=== PATIENT | male | born 1970 | race Caucasian/White ===

== ENCOUNTER 2019-02-01 16:25 | Emergency (ER) | payer OTHER ==
--- NOTE | 2019-02-01 17:35 | RAD REPORT ---
EXAM DESCRIPTION: RAD - Knee Left 3 View - 02/01/2019 5:13 pm CLINICAL HISTORY: Left knee pain FINDINGS: No fracture or dislocation is seen. Mild to moderate osteoarthritis involves medial compartment consisting of joint space narrowing osteo phytes
--- NOTE | 2019-02-01 19:16 | EDPHYS ---
Physician Documentation [facility] Name: Garland Hidalgo Age: 48 yrs Sex: Male : 1970 Arrival Date: 02/01/2019 Time: 16:29 Bed Treatment Private MD: ED Physician Bill Puri HPI: 02/01 19:28 This 48 yrs old Male presents to ER via Wheelchair with complaints of Knee snw Injury. 19:28 The patient presents with decreased range of motion, an injury, pain, that is acute. snw The complaints affect the left knee. Context: The problem was sustained at home, resulted from a mis-step, the patient can fully bear weight, the patient is able to ambulate. Onset: The symptoms/episode began/occurred suddenly, today. Associated signs and symptoms: The patient has no apparent associated signs or symptoms. Treatment prior to arrival includes: splinting the affected extremity. Severity of symptoms: At their worst the symptoms were moderate. The patient has experienced a previous episode, approximately 1 years ago. It is unknown whether or not the patient has recently seen a physician. Historical: - Allergies: 16:46 TETRACYCLINES; hb 16:46 PENICILLINS; hb - Home Meds: 16:46 Advair Diskus Inhl 1 puff daily [Active]; albuterol sulfate 2.5 mg /3 mL (0.083 %) Inhl hb nebu 3 mL 3 times per day [Active]; Proventil Inhl 2.5 mg as needed [Active]; - PMHx: 16:46 Asthma; Hyperlipidemia; Hypertension; hb - PSHx: 16:46 Hernia repair; hb - Immunization history:: Adult Immunizations up to date. - Social history:: Smoking status: Patient/guardian denies using tobacco. - Ebola Screening: : No symptoms or risks identified at this time. ROS: 19:26 Constitutional: Negative for fever, chills, and weight loss, Eyes: Negative for injury, snw pain, redness, and discharge, ENT: Negative for injury, pain, and discharge, Neck: Negative for injury, pain, and swelling, Cardiovascular: Negative for chest pain, palpitations, and edema, Respiratory: Negative for shortness of breath, cough, wheezing, and pleuritic chest pain, Abdomen/GI: Negative for abdominal pain, nausea, vomiting, diarrhea, and constipation, Back: Negative for injury and pain, : Negative for injury, bleeding, discharge, and swelling, Skin: Negative for injury, rash, and discoloration, Neuro: Negative for headache, weakness, numbness, tingling, and seizure, Psych: Negative for depression, anxiety, suicide ideation, homicidal ideation, and hallucinations. 19:26 MS/extremity: Positive for pain, of the left knee. Exam: 19:25 Constitutional: This is a well developed, well nourished patient who is awake, alert, snw and in no acute distress. Head/Face: Normocephalic, atraumatic. Eyes: Pupils equal round and reactive to light, extra-ocular motions intact. Lids and lashes normal. Conjunctiva and sclera are non-icteric and not injected. Cornea within normal limits. Periorbital areas with no swelling, redness, or edema. ENT: Nares patent. No nasal discharge, no septal abnormalities noted. Tympanic membranes are normal and external auditory canals are clear. Oropharynx with no redness, swelling, or masses, exudates, or evidence of obstruction, uvula midline. Mucous membranes moist. Neck: Trachea midline, no thyromegaly or masses palpated, and no cervical lymphadenopathy. Supple, full range of motion without nuchal rigidity, or vertebral point tenderness. No Meningismus. Chest/axilla: Normal chest wall appearance and motion. Nontender with no deformity. No lesions are appreciated. Cardiovascular: Regular rate and rhythm with a normal S1 and S2. No gallops, murmurs, or rubs. Normal PMI, no JVD. No pulse deficits. Respiratory: Lungs have equal breath sounds bilaterally, clear to auscultation and percussion. No rales, rhonchi or wheezes noted. No increased work of breathing, no retractions or nasal flaring. Abdomen/GI: Soft, non-tender, with normal bowel sounds. No distension or tympany. No guarding or rebound. No evidence of tenderness throughout. Back: No spinal tenderness. No costovertebral tenderness. Full range of motion. Skin: Warm, dry with normal turgor. Normal color with no rashes, no lesions, and no evidence of cellulitis. Neuro: Awake and alert, GCS 15, oriented to person, place, time, and situation. Cranial nerves II-XII grossly intact. Motor strength 5/5 in all extremities. Sensory grossly intact. Cerebellar exam normal. Normal gait. Psych: Awake, alert, with orientation to person, place and time. Behavior, mood, and affect are within normal limits. 19:25 Musculoskeletal/extremity: Extremities: grossly normal except: noted in the left knee: pain, ROM: limited active range of motion due to pain, in the left knee, Circulation is intact in all extremities. Sensation intact. Vital Signs: 16:46 BP 141 / 94; Pulse 86; Resp 16; Temp 98.1; Pulse Ox 98% on R/A; Pain 10/10; hb 19:30 BP 145 / 101; Pulse 88; Resp 18; Pulse Ox 99% on R/A; jb4 MDM: 18:08 Patient medically screened. snw 19:27 Data reviewed: vital signs, nurses notes. Data interpreted: Pulse oximetry: on room air snw is 98 %. Interpretation: normal. Counseling: I had a detailed discussion with the patient and/or guardian regarding: the historical points, exam findings, and any diagnostic results supporting the discharge/admit diagnosis, radiology results, the need for outpatient follow up, to return to the emergency department if symptoms worsen or persist or if there are any questions or concerns that arise at home. Special discussion: I have referred the patient to see his PCP for further evaluation of high blood pressure. Based on the history and exam findings, there is no indication for further emergent testing or inpatient evaluation. I discussed with the patient/guardian the need to see the orthopedic surgeon for further evaluation of the symptoms. I discussed with the patient/guardian the need to see the primary care provider for further evaluation of the symptoms. 02/01 16:46 Order name: Knee Left 3 View XRAY; Complete Time: 18:08 hb Administered Medications: 19:22 Drug: TORadol 60 mg Route: IM; Site: left gluteus; jb4 19:30 Follow up: Response: No adverse reaction; Medication administered at discharge. jb4 Disposition: 02/02 07:01 Co-signature as Attending Physician, Bill Puri MD I agree with the assessment and kdr plan of care. Disposition: 02/01/19 19:15 Discharged to Home. Impression: Pain in left knee. - Condition is Stable. - Discharge Instructions: Joint Pain, How to Use a Knee Brace, Musculoskeletal Pain, Knee Pain, Cryotherapy, [id number], Heat Therapy. - Prescriptions for Diclofenac Sodium 75 mg Oral Tablet Sustained Release - take 1 tablet by ORAL route 2 times per day; 30 tablet. - Work release form, Medication Reconciliation Form, Thank You Letter, Antibiotic Education, Prescription Opioid Use form. - Follow up: Private Physician; When: 2 - 3 days; Reason: Recheck today's complaints, Continuance of care, Re-evaluation by your physician. Follow up: Emergency Department; When: As needed; Reason: Worsening of condition. Signatures: Dispatcher [employer] EDMS Bill Puri MD MD [facility] Lacy An, ORACLE SECURITY CONSULTANT-C ORACLE SECURITY CONSULTANT-Csnw Celena Guillen, RN RN Marko Santos RN RN jb4 Corrections: (The following items were deleted from the chart) 02/01 19:39 19:15 02/01/2019 19:15 Discharged to Home. Impression: Pain in left knee. Condition is jb4 Stable. Forms are Medication Reconciliation Form, Thank You Letter, Antibiotic Education, Prescription Opioid Use. Follow up: Private Physician; When: 2 - 3 days; Reason: Recheck today's complaints, Continuance of care, Re-evaluation by your physician. Follow up: Emergency Department; When: As needed; Reason: Worsening of condition. snw
--- NOTE | 2019-02-01 19:16 | ER ---
Nurse's Notes [facility] Name: Garland Hidalgo Age: 48 yrs Sex: Male : 1970 Arrival Date: 02/01/2019 Time: 16:29 Bed Treatment Private MD: Diagnosis: Pain in left knee Presentation: 02/01 16:42 Presenting complaint: Patient states: "I felt and heard a loud pop in my left knee when hb I was stepping up a trailer." Now c/o left knee pain 09/06. Transition of care: patient was not received from another setting of care. Onset of symptoms was February 01, 2019 at 14:30. Risk Assessment: Do you want to hurt yourself or someone else? Patient reports no desire to harm self or others. Care prior to arrival: Medication(s) given: Tylenol, 2 hrs SAFETY INVESTIGATOR/CAUSE ANALYST. 16:42 Method Of Arrival: Wheelchair hb 16:42 Acuity: PETER 4 hb 17:00 Initial Sepsis Screen: Does the patient meet any 2 criteria? No. Patient's initial iw sepsis screen is negative. Does the patient have a suspected source of infection? No. Patient's initial sepsis screen is negative. Triage Assessment: 18:00 Injury Description:. iw Historical: - Allergies: 16:46 TETRACYCLINES; hb 16:46 PENICILLINS; hb - Home Meds: 16:46 Advair Diskus Inhl 1 puff daily [Active]; albuterol sulfate 2.5 mg /3 mL (0.083 %) Inhl hb nebu 3 mL 3 times per day [Active]; Proventil Inhl 2.5 mg as needed [Active]; - PMHx: 16:46 Asthma; Hyperlipidemia; Hypertension; hb - PSHx: 16:46 Hernia repair; hb - Immunization history:: Adult Immunizations up to date. - Social history:: Smoking status: Patient/guardian denies using tobacco. - Ebola Screening: : No symptoms or risks identified at this time. Screenin:38 Abuse screen: Denies threats or abuse. Denies injuries from another. Nutritional iw screening: No deficits noted. Tuberculosis screening: No symptoms or risk factors identified. Fall Risk None identified. Assessment: 18:38 General: Appears in no apparent distress. comfortable, Behavior is calm, cooperative. iw Pain: Complains of pain in left knee. Neuro: Level of Consciousness is awake, alert, obeys commands, Moves all extremities. Cardiovascular: Patient's skin is warm and dry. Respiratory: Respiratory effort is even, unlabored. Derm: Skin is intact, is healthy with good turgor. Musculoskeletal: Range of motion: intact in all extremities, Reports pain in left knee. 19:15 Reassessment: Patient appears in no apparent distress at this time. Patient and/or jb4 family updated on plan of care and expected duration. Pain level reassessed. Patient is alert, oriented x 3, equal unlabored respirations, skin warm/dry/pink. Vital Signs: 16:46 BP 141 / 94; Pulse 86; Resp 16; Temp 98.1; Pulse Ox 98% on R/A; Pain 10/10; hb 19:30 BP 145 / 101; Pulse 88; Resp 18; Pulse Ox 99% on R/A; jb4 ED Course: 16:29 Patient arrived in ED. rg4 16:45 Triage completed. hb 16:46 Arm band placed on. hb 16:48 X-ray ordered. hb 17:12 X-ray completed. Portable x-ray completed in exam room. Patient tolerated procedure ls3 well. 17:13 Knee Left 3 View XRAY In Process Unspecified. EDMS 17:37 Suzie Jones, RN is Primary Nurse. iw 17:52 Patient has correct armband on for positive identification. Call light in reach. Ice mh5 pack to injury. 18:08 Lacy An FNP-C is [facility]. snw 18:08 Bill Puri MD is Attending Physician. snw 18:39 No provider procedures requiring assistance completed. Patient did not have IV access iw during this emergency room visit. Administered Medications: 19:22 Drug: TORadol 60 mg Route: IM; Site: left gluteus; jb4 19:30 Follow up: Response: No adverse reaction; Medication administered at discharge. jb4 Outcome: 19:15 Discharge ordered by . snw 19:38 Discharged to home via wheelchair. iw 19:38 Condition: good 19:38 Discharge instructions given to patient, Instructed on discharge instructions, follow up and referral plans. medication usage, Demonstrated understanding of instructions, follow-up care, medications, Prescriptions given X 1. 19:39 Patient left the ED. jb4 Signatures: Dispatcher [employer] EDMS Lacy An HEAD WELL PULLER-C HEAD WELL PULLER-Csnw Suzie Jones RN RN iw Celena Guillen RN RN Macy Lopez rg4 Marko Santos RN RN 4 Tami Castro 5 Skinny Delgado ls3 Corrections: (The following items were deleted from the chart) 19:54 19:38 Discharge instructions given to patient, Instructed on discharge instructions, iw follow up and referral plans. medication usage, Demonstrated understanding of instructions, follow-up care, medications, Prescriptions given X 2, iw
[2019-02-01] MEDS ORDERED: KETOROLAC 30 MG/ML INJ ONE (19:33)
== END 2019-02-01 19:39 | disposition home or self-care (01) ==
LOC: ER 16:25
DX: M25.562 Pain in left knee (principal); I10 Essential (primary) hypertension; E78.5 Hyperlipidemia, unspecified; J45.909 Unspecified asthma, uncomplicated; Z88.0 Allergy status to penicillin; Z88.1 Allergy status to other antibiotic agents
CPT/HCPCS: 96372; 99283

== ENCOUNTER 2024-06-27 12:07 | Observation (INO) | payer OTHER ==
--- OUTSIDE RECORDS SUMMARY | 2024-06-27 12:14 | XMS REPORT | Continuity of Care Document ---
Author Name Unknown Address [address] [place] [address] [address] [place] [address] [facility] Address [address] [facility]. [address] [place] [address] Care Team Providers Care Receiving Worker Name Role Phone MALKA LUTZ Attending Clinician Unavailab shahzad FLEMING Attending Clinician Unavailable Doctor Unassigned, [place] Attending Clinician U Bharti Black Attending Clinician [phone] Malka Lutz MD Attending Clinician [phone] MALKA LUTZ Admitting Clinician Unavailab shahzad FLEMING Admitting Clinician Unavailable Malka Lutz MD Admitting Clinician [phone] Problems Condition Name Condition Details Condition Category Status Onset Date Resolution Date Last Treatment Date Treating Clinician Comments Source Snake bite, initial encounter Snake bite, initial encounter Disease Active 02-02 00:00: 00 [facility] Allergies, Adverse Reactions, Alerts Allergy Name Allergy Type Status Severity Reaction(s) Onset Date Inactive Date Treating Clinician Comments Source Penicill in Propensi ty to adverse reaction s Active Unknown - See comments 02-02 00:00: 00 Pt unsure. [facility] Tetracyc line Propensi ty to adverse reaction s Active Unknown - See comments 02-02 00:00: 00 Pt unsure. [facility] PENICILL IN DRUG INGREDI Active Unknown-Cmnt 02-02 00:00: 00 [facility] TETRACYC LINE DRUG INGREDI Active Unknown-Cmnt 02-02 00:00: 00 [facility] Social History Social Habit Start Date Stop Date Quantity Comments Source Exposure to SARS-CoV-2 (event) Not sure [facility] Sex Assigned At 1970 00:00:00 1970 00:00:00 [facility] Smoking Status Start Date Stop Date Source Unknown if ever smoked [facility] Medications Ordered Medication Name Filled Medication Name Start Date Stop Date Current Medication? Ordering Clinician Indication Dosage Frequency Signature (SIG) Comments Components Source crotalidae polyval immune phillip (CROFAB) injection 2 Vial 02-03 13:28: 00 02-04 03:50 :00 No 2{vial} 2 Vial, Intravenou s, Q6H ABX, 3 doses, First dose (after last reorder) on Tue02/03/21 at 0730, Last dose on Tue02/03/21 at 1930, Routine [facility] lactated ringers IV infusion 1,000 mL 02-03 06:15: 00 Yes 1000mL at 125 mL/hr, 1,000 mL, IV Infusion, CONTINUOUS , Starting Tue02/03/21 at 0015, Until Discontinu ed, Routine [facility] crotalidae polyval immune phillip (CROFAB) injection 4 Vial 02-03 05:15: 00 02-03 05:50 :00 No 4{vial} 4 Vial, Intravenou s, ONCE, 1 dose, Tue02/02/21 at 2315, Routine [facility] morpHINE injection 4 mg 02-03 05:09: 56 Yes 4mg 4 mg, Slow IV Push, Q4HPRN, Starting Tue02/02/21 at 2309, Until Discontinu ed, Routine, Pain (scale 7-10) [facility] No known medications No Un stuart [facility] No known medications No Un stuart [facility] Vital Signs Vital Name Observation Time Observation Value Comments S anatoliy Systolic blood pressure 2021-02-04 15:00:00 148 mm[Hg] [facility] Diastolic blood pressure 2021-02-04 15:00:00 92 mm[Hg] [facility] Heart rate 2021-02-04 15:00:00 87 /min [facility] Respiratory rate 2021-02-04 15:00:00 24 /min [facility] Oxygen saturation in Arterial blood by Pulse oximetry 2021-02-04 15:00:00 95 /min [facility] Body temperature 2021-02-04 14:00:00 37 Preeti [facility] Body weight 2021-02-03 04:47:00 111.131 kg [facility] Procedures Procedure Date / Time Performed Performing Clinician Source EXTERNAL PROVIDER RECORDS 2021-02-11 05:01:00 Doctor Unassigned, [place] [facility] PHOSPHORUS 2021-02-04 10:28:00 Melba, [facility] CBC WITH DIFF 2021-02-04 10:28:00 Melba [facility] PROTHROMBIN TIME / INR 2021-02-03 09:37:00 Melba [facility] ACTIVATED PARTIAL THRMPLAS EPIFANIO 2021-02-03 09:37:00 Melba [facility] FIBRINOGEN 2021-02-03 09:37:00 Melba [facility] PHOSPHORUS 2021-02-03 08:51:00 Melba, [facility] MAGNESIUM 2021-02-03 08:51:00 Melba [facility] BASIC METABOLIC PANEL (NA, K, CL, CO2, GLUCOSE, BUN, CREATININE, CA) 2021-02-03 08:51:00 Melba [facility] CBC WITH DIFF 2021-02-03 08:51:00 Melba [facility] EXTRA TUBE LT. BLUE 2021-02-03 08:51:00 Adrian Lutz am [facility] MRSA / MSSA SCREEN BY PCR, MAGDA 2021-02-03 06:54:00 Melba [facility] URINALYSIS 2021-02-03 05:38:00 Melba [facility] CBC WITH DIFF 2021-02-03 05:09:00 Melba [facility] BASIC METABOLIC PANEL (NA, K, CL, CO2, GLUCOSE, BUN, CREATININE, CA) 2021-02-03 05:08:00 Melba [facility] PROTHROMBIN TIME / INR 2021-02-03 05:08:00 MelbaAndreea [facility] ACTIVATED PARTIAL THRMPLAS EPIFANIO 2021-02-03 05:08:00 MelbaAndreea [facility] FIBRINOGEN 2021-02-03 05:08:00 [facility] 2021-02-02 06:01:00 Doctor Un assigned, [place] [facility] Encounters Start Date/Time End Date/Time Encounter Type Admission Type Attending Clinicians Care Facility Care Department Encounter ID Source 2021-02-02 22:48:00 Inpatient X MALKA LUTZ [facility] SPL [id number] [facility] 2022-06-08 11:29:00 2022-06-08 11:29:00 Outpatient GIFTY_TODD MACRa [facility] [id number] [facility] Program 2021-02-11 00:00:00 2021-02-11 00:00:00 Orders Only Doctor Unassigned, [place] [facility] [id number] [facility] 2021-02-05 00:00:00 2021-02-05 00:00:00 Transition of Care Basim Bharti Marilyncliff Rodrigo Poe [id number] [facility] 2021-02-02 22:48:00 2021-02-04 10:00:00 Hospital Encounter Malka Lutz [facility] [id number] [facility] Results Test Description Test Time Test Comments Results Result Co mments Source [facility] with [id number] 11:13:40* Test Item Value Reference Range Interpretation Comme nts WBC (test code = 6690-2) See_Comment [Automated messa ge] The system which generated this result transmitted reference range: 4.20 - 10.70 10*3/?L. The reference range was not used to interpret this result as normal/abnormal. RBC (test code = 789-8) See_Comment [Automated VidFall.coma ge] The system which generated this result transmitted reference range: 4.26 - 5.52 10*6/?L. The reference range was not used to interpret this result as normal/abnormal. HGB (test code = 718-7) 14.3 g/dL 12.2-16.4 HCT (test code = 4544-3) 43.4 % 38.4-49.3 MCV (test code = 787-2) 91.8 fL 81.7-95.6 MCH (test code = 785-6) 30.2 pg 26.1-32.7 MCHC (test code = 786-4) 32.9 g/dL 31.2-35.0 RDW-SD (test code = 67611-5) 44.5 fL 38.5-51.6 RDW-CV (test code = 788-0) 13.2 % 12.1-15.4 PLT (test code = 777-3) See_Comment [Automated VidFall[employer]coma ge] The system which generated this result transmitted reference range: 150 - 328 10*3/?L. The reference range was not used to interpret this result as normal/abnormal. MPV (test code = 16214-6) 11.1 fL 9.8-13.0 NRBC/100 WBC (test code = 2067904122) See_Comment [Automated Aviir ssage] The system which generated this result transmitted reference range: 0.0 - 10.0 /100 WBCs. The reference range was not used to interpret this result as normal/abnormal. NRBC x10^3 (test code = 5631169112) <0.01 See_Comment [Automated me ssage] The system which generated this result transmitted reference range: 10*3/?L. The reference range was not used to interpret this result as normal/abnormal. GRAN MAT (NEUT) % (test code = 770-8) 58.9 % IMM GRAN % (test code = 4892330385) 0.30 % LYMPH % (test code = 736-9) 25.9 % MONO % (test code = 5905-5) 10.5 % EOS % (test code = 713-8) 3.8 % BASO % (test code = 706-2) 0.6 % GRAN MAT x10^3(ANC) (test code = 6197144779) 4.71 10*3/uL 1.99-6.95 IMM GRAN x10^3 (test code = 0678880633) <0.03 0.00-0.06 LYMPH x10^3 (test code = 731-0) 2.07 10*3/uL 1.09-3.23 MONO x10^3 (test code = 742-7) 0.84 10*3/uL 0.36-1.02 EOS x10^3 (test code = 711-2) 0.30 10*3/uL 0.06-0.53 BASO x10^3 (test code = 704-7) 0.05 10*3/uL 0.01-0.09 [facility] Screen by Magda [id number] 22:01:29* Test Item Value Reference Range Interpretation Comme nts MSSA Screen by Magda DILLON (t est code = 02993-4) Negative Negative MRSA/MSSA Positive? (test co de = 0011149179) No No Lab Interpretation (test cod e = 61812-1) Normal [facility] THRM[facility]AS [id number] 10:09:26* Test Item Value Reference Range Interpretation Comme nts APTT Patient (test code = 3173-2) See_Comment [Automated VidFall.coma ge] The system which generated this result transmitted reference range: 26 - 36 Seconds. The reference range was not used to interpret this result as normal/abnormal. Lab Interpretation (test code = 75362-7) Normal [facility]EN2021-03-09 10:09:26* Test Item Value Reference Range Interpretation Comme nts Fibrinogen (test code = 9557945932) 274 mg/dL 167-453 Lab Interpretation (test cod e = 95985-1) Normal [facility] CenterPROTHR[facility]BIN TIME / [id number] 10:09:26* Test Item Value Reference Range Interpretation Comme nts PROTIME PATIENT (test code = 5964-2) See_Comment H [Automated VidFall.coma ge] The system which generated this result transmitted reference range: 10.1 - 12.6 Seconds. The reference range was not used to interpret this result as normal/abnormal. INR (test code = 6301-6) Normal INR <1.1; Warfarin Therapeutic range 2.0 to 3.0 or 2.5 to 3.5, depending upon the indications. Lab Interpretation (test code = 57899-2) Abnormal [facility] CenterMagnesium [id number] 09:27:57* Test Item Value Reference Range Interpretation Comme nts MAGNESIUM (test code = 9287752337) 1.7 mg/dL 1.7-2.4 Lab Interpretation (test cod e = 48878-7) Normal [facility] CenterPhosphorus [id number] 09:27:57* Test Item Value Reference Range Interpretation Comme nts PHOSPHORUS (test code = 4179961444) 3.6 mg/dL 2.5-5.0 Lab Interpretation (test cod e = 50452-0) Normal [facility] (NA, K, CL, CO2, GLUCOSE, BUN, CREATININE, CA)2021-02-03 09:27:57* Test Item Value Reference Range Interpretation Comme nts NA (test code = 7989981195) 138 mmol/L 135-145 K (test code = 6792127011) 4.2 mmol/L 3.5-5.0 Slight hemolysis CL (test code = 4725814806) 106 mmol/L 98-108 CO2 TOTAL (test code = 2813247288) 24 mmol/L 23-31 AGAP (test code = 9678234723) 2-16 BUN (test code = 2549136277) 17 mg/dL 7-23 Slight hemolysis GLUCOSE (test code = 0427737947) 121 mg/dL 70-110 H CREATININE (test code = 7017650256) 0.61 mg/dL 0.60-1.25 CALCIUM (test code = 1612632220) 8.0 mg/dL 8.6-10.6 L eGFR Calculation (Non-) (test code = 2775710862) mL/min/1.73m2 eGFR Calculation () (test code = 1691172312) mL/min/1.73m2 BRE (test code = BRE) Association of Glomerular Filtration Rate (GFR) and Staging of Kidney Disease* + -----+ --------+ +| GFR (mL/min/1.73 m2) ?| With Kidney Damage ?| ?Without Kidney Damage+ +------- +---- --+| ?>90 ?| ?Stage one ?| ? Normal ?+ ------+ ---------+--------- +| ?60-89 ?| ?Stage two ?| ? Decreased GFR ? + -----+ --------+ +| ?30-59 ?| ?Stage three ?| ? Stage three ? + -----+ --------+ +| ?15-29 ?| ?Stage four ? | ? Stage four ?+ ------+ ---------+--------- +| ?<15 (or dialysis) ? ?| ?Stage five ? | ? Stage five ?+ ------+ ---------+--------- + *Each stage assumes the associated GFR level has been in effect for at least three months. ?Stages 1 to 5, with or without kidney disease, indicate chronic kidney disease. Notes: Determination of stages one and two (with eGFR >59mL/min/1.73 m2) requires estimation of kidney damage for at least three months as defined by structural or functional abnormalities of the kidney, manifested by either:Pathological abnormalities or Markers of kidney damage (including abnormalities in the composition of the blood or urine or abnormalities in imaging tests). Lab Interpretation (test code = 65274-4) Abnormal [facility] WITH [id number] 09:11:14* Test Item Value Reference Range Interpretation Comme nts WBC (test code = 6690-2) See_Comment H [Automated SiTune] The system which generated this result transmitted reference range: 4.20 - 10.70 10*3/?L. The reference range was not used to interpret this result as normal/abnormal. RBC (test code = 789-8) See_Comment [Automated SiTune] The system which generated this result transmitted reference range: 4.26 - 5.52 10*6/?L. The reference range was not used to interpret this result as normal/abnormal. HGB (test code = 718-7) 14.5 g/dL 12.2-16.4 HCT (test code = 4544-3) 44.8 % 38.4-49.3 MCV (test code = 787-2) 89.8 fL 81.7-95.6 MCH (test code = 785-6) 29.1 pg 26.1-32.7 MCHC (test code = 786-4) 32.4 g/dL 31.2-35.0 RDW-SD (test code = 61650-6) 43.5 fL 38.5-51.6 RDW-CV (test code = 788-0) 13.2 % 12.1-15.4 PLT (test code = 777-3) See_Comment [Automated messa ge] The system which generated this result transmitted reference range: 150 - 328 10*3/?L. The reference range was not used to interpret this result as normal/abnormal. MPV (test code = 80094-3) 11.2 fL 9.8-13.0 NRBC/100 WBC (test code = 7447250475) See_Comment [Automated Aviir ssage] The system which generated this result transmitted reference range: 0.0 - 10.0 /100 WBCs. The reference range was not used to interpret this result as normal/abnormal. NRBC x10^3 (test code = 5929058494) <0.01 See_Comment [Automated VidFall.coma ge] The system which generated this result transmitted reference range: 10*3/?L. The reference range was not used to interpret this result as normal/abnormal. GRAN MAT (NEUT) % (test code = 770-8) 80.7 % IMM GRAN % (test code = 0420850072) 0.30 % LYMPH % (test code = 736-9) 11.3 % MONO % (test code = 5905-5) 7.3 % EOS % (test code = 713-8) 0.2 % BASO % (test code = 706-2) 0.2 % GRAN MAT x10^3(ANC) (test code = 8490363312) 9.88 10*3/uL 1.99-6.95 H IMM GRAN x10^3 (test code = 2515845588) 0.04 10*3/uL 0.00-0.06 LYMPH x10^3 (test code = 731-0) 1.39 10*3/uL 1.09-3.23 MONO x10^3 (test code = 742-7) 0.90 10*3/uL 0.36-1.02 EOS x10^3 (test code = 711-2) 0.03 10*3/uL 0.06-0.53 L BASO x10^3 (test code = 704-7) 0.03 10*3/uL 0.01-0.09 Lab Interpretation (test code = 92029-6) Abnormal [facility] CenterURINALYSIS2021-03-09 06:31:43* Test Item Value Reference Range Interpretation Comme nts APPEARANCE (test code = 1695184037) Clear Clear COLOR (test code = 7352086630) Yellow Yellow PH (test code = 2482090856) 4.8-8.0 SP GRAVITY (test code = 1320469929) 1.003-1.030 GLU U QUAL (test code = 6745780692) Normal Normal BLOOD (test code = 2816104203) 1+ Negative A KETONES (test code = 4961217593) Negative Negative PROTEIN (test code = 2887-8) 30 mg/dL Negative A UROBILIN (test code = 2475596281) Normal Normal BILIRUBIN (test code = 3476079648) Negative Negative NITRITE (test code = 4038336998) Negative Negative LEUK MELA (test code = 9151427259) Negative Negative RBC/HPF (test code = 4892445100) <1 See_Comment [Automated VidFall.coma ge] The system which generated this result transmitted reference range: 0 - 3 HPF. The reference range was not used to interpret this result as normal/abnormal. WBC/HPF (test code = 4579887948) See_Comment [Automated VidFall.coma ge] The system which generated this result transmitted reference range: 0 - 5 HPF. The reference range was not used to interpret this result as normal/abnormal. BACTERIA (test code = 4657020347) Negative Negative MUCOUS (test code = 5984780257) Slight Negative LPF A Lab Interpretation (test code = 35745-6) Abnormal [facility] (NA, K, CL, CO2, GLUCOSE, BUN, CREATININE, CA)2021-02-03 05:37:13* Test Item Value Reference Range Interpretation Comme nts NA (test code = 4274030548) 141 mmol/L 135-145 K (test code = 5547919289) 3.7 mmol/L 3.5-5.0 Slight hemolysis CL (test code = 7581973614) 113 mmol/L 98-108 H CO2 TOTAL (test code = 3164824253) 22 mmol/L 23-31 L AGAP (test code = 1162465647) 2-16 BUN (test code = 9954949543) 16 mg/dL 7-23 Slight hemolysis GLUCOSE (test code = 1895956159) 109 mg/dL 70-110 CREATININE (test code = 0506116494) 0.53 mg/dL 0.60-1.25 L CALCIUM (test code = 5478277246) 7.0 mg/dL 8.6-10.6 L eGFR Calculation (Non-) (test code = 0468203088) mL/min/1.73m2 eGFR Calculation () (test code = 0524275195) mL/min/1.73m2 BRE (test code = BRE) Association of Glomerular Filtration Rate (GFR) and Staging of Kidney Disease* + -----+ --------+ +| GFR (mL/min/1.73 m2) ?| With Kidney Damage ?| ?Without Kidney Damage+ +------- +---- --+| ?>90 ?| ?Stage one ?| ? Normal ?+ ------+ ---------+--------- +| ?60-89 ?| ?Stage two ?| ? Decreased GFR ? + -----+ --------+ +| ?30-59 ?| ?Stage three ?| ? Stage three ? + -----+ --------+ +| ?15-29 ?| ?Stage four ? | ? Stage four ?+ ------+ ---------+--------- +| ?<15 (or dialysis) ? ?| ?Stage five ? | ? Stage five ?+ ------+ ---------+--------- + *Each stage assumes the associated GFR level has been in effect for at least three months. ?Stages 1 to 5, with or without kidney disease, indicate chronic kidney disease. Notes: Determination of stages one and two (with eGFR >59mL/min/1.73 m2) requires estimation of kidney damage for at least three months as defined by structural or functional abnormalities of the kidney, manifested by either:Pathological abnormalities or Markers of kidney damage (including abnormalities in the composition of the blood or urine or abnormalities in imaging tests). Lab Interpretation (test code = 17350-4) Abnormal [facility] CenterPROTHROMBIN TIME / [id number] 05:35:11* Test Item Value Reference Range Interpretation Comme [facility] PROTIME PATIENT (test code = 5964-2) See_Comment [Automated VidFall.coma Wormhole] The system which generated this result transmitted reference range: 10.1 - 12.6 Seconds. The reference range was not used to interpret this result as normal/abnormal. INR (test code = 6301-6) Normal INR <1.1; Warfarin Therapeutic range 2.0 to 3.0 or 2.5 to 3.5, depending upon the indications. Lab Interpretation (test code = 56918-5) Normal [facility] CenterACTIV[facility]IAL THRMPLAS [id number] 05:35:11* Test Item Value Reference Range Interpretation Comme [facility] APTT Patient (test code = 3173-2) See_Comment L [Automated SiTune] The system which generated this result transmitted reference range: 26 - 36 Seconds. The reference range was not used to interpret this result as normal/abnormal. Lab Interpretation (test code = 77595-8) Abnormal [facility] CenterFIBRINOGEN2021-03-09 05:35:11* Test Item Value Reference Range Interpretation Comme [facility] Fibrinogen (test code = 5300959478) 311 mg/dL 167-453 Lab Interpretation (test cod e = 62437-6) Normal [facility] CenterCBC WITH [id number] 05:27:33* Test Item Value Reference Range Interpretation Comme [facility] WBC (test code = 6690-2) See_Comment H [Automated message] The system which generated this result transmitted reference range: 4.20 - 10.70 10*3/?L. The reference range was not used to interpret this result as normal/abnormal. RBC (test code = 789-8) See_Comment H [Automated message] The system which generated this result transmitted reference range: 4.26 - 5.52 10*6/?L. The reference range was not used to interpret this result as normal/abnormal. HGB (test code = 718-7) 16.6 g/dL 12.2-16.4 H HCT (test code = 4544-3) 49.7 % 38.4-49.3 H MCV (test code = 787-2) 89.7 fL 81.7-95.6 MCH (test code = 785-6) 30.0 pg 26.1-32.7 MCHC (test code = 786-4) 33.4 g/dL 31.2-35.0 RDW-SD (test code = 70971-8) 43.0 fL 38.5-51.6 RDW-CV (test code = 788-0) 13.1 % 12.1-15.4 PLT (test code = 777-3) See_Comment [Automated message] The system which generated this result transmitted reference range: 150 - 328 10*3/?L. The reference range was not used to interpret this result as normal/abnormal. MPV (test code = 41817-6) 11.1 fL 9.8-13.0 NRBC/100 WBC (test code = 4468101588) See_Comment [Automated message] The system which generated this result transmitted reference range: 0.0 - 10.0 /100 WBCs. The reference range was not used to interpret this result as normal/abnormal. NRBC x10^3 (test code = 3717034604) <0.01 See_Comment [Automated message] The system which generated this result transmitted reference range: 10*3/?L. The reference range was not used to interpret this result as normal/abnormal. GRAN MAT (NEUT) % (test code = 770-8) 86.3 % IMM GRAN % (test code = 7750914180) 0.20 % LYMPH % (test code = 736-9) 6.0 % MONO % (test code = 5905-5) 7.0 % EOS % (test code = 713-8) 0.2 % BASO % (test code = 706-2) 0.3 % GRAN MAT x10^3(ANC) (test code = 7326429175) 14.38 10*3/uL 1.99-6.95 H IMM GRAN x10^3 (test code = 4466344647) 0.04 10*3/uL 0.00-0.06 LYMPH x10^3 (test code = 731-0) 1.00 10*3/uL 1.09-3.23 L MONO x10^3 (test code = 742-7) 1.17 10*3/uL 0.36-1.02 H EOS x10^3 (test code = 711-2) 0.03 10*3/uL 0.06-0.53 L BASO x10^3 (test code = 704-7) 0.05 10*3/uL 0.01-0.09 Lab Interpretation (test code = 29911-9) Abnormal [facility]"
--- NOTE | 2024-06-27 13:36 | RAD REPORT ---
EXAM DESCRIPTION: RAD - Chest Single View - 06/27/2024 1:24 pm CLINICAL HISTORY: COUGH Chest pain. COMPARISON: <Comparisons> FINDINGS: Portable technique limits examination quality. The lungs are grossly clear. The heart is normal in size. No displaced fractures. IMPRESSION: No acute intrathoracic process suspected.
[2024-06-27 14:00] LABS: Absolute Basophils 0.1 K/uL (0-0.5); Absolute Eosinophils 0.1 K/uL (0-0.5); Absolute Lymphocytes (CBC) 2.3 K/uL (0.7-4.9); Absolute Monocytes 0.7 K/uL (0.1-1.3); Absolute Neutrophil 3.9 K/uL (1.8-8.0); Basophils % 0.9 % (0-1.3); Hematocrit 47.8 % (39.6-49.0); Hemoglobin 15.6 g/dL (13.6-17.9); Lymphocytes % 33.2 % (15.3-44.8); MCH 30.1 pg (27.0-35.0); MCHC 32.7 g/dL (32.0-36.0); MCV 92.1 fL (80-100); MPV 9.5 fL (7.6-11.3); Monocytes % 9.5 % (3.3-12.3); Neutrophils % 55.4 % (41.7-73.7); Nucleated Red Blood Cells % 0.1 % (0-0); Platelets 294 thou/uL (152-406); RBC Red Blood Cell Count 5.19 M/uL (4.33-5.43); Red Cell Distribution Width 13.1 % (12.1-15.2)
[2024-06-27 14:03] LABS: Specific Gravity 1.024 (1.005-1.030); Sqamous Epithelial None Seen /HPF (None Seen); Urine Bacteria None Seen /HPF (<20); Urine Bilirubin NEGATIVE (Negative); Urine Blood Negative (Negative); Urine Clarity Extremely Turbid (Clear); Urine Color Yellow (Yellow); Urine Culture Reflex Order NOT NEEDED; Urine Glucose NEGATIVE (Negative); Urine Ketones NEGATIVE (Negative); Urine Microscopic Reflex YN ORDER UMIC; Urine Nitrite NEGATIVE (Negative); Urine Protein TRACE (Negative); Urine RBC None Seen /HPF (None Seen); Urine Urobilinogen Normal (Normal); Urine WBC <5 /HPF (<5)
[2024-06-27 14:06] LABS: PT Prothrombin Time 12.1 SECONDS (9.4-12.5); Protime INR 1.08
[2024-06-27 14:19] LABS: Albumin 4.5 g/dL (3.4-5.0); Albumin/Globulin Ratio 1.2 (1.1-1.8); Anion Gap 10.2 mEq/L (5.0-15.0); Bilirubin Direct 0.2 mg/dL (0-0.2); Bilirubin Indirect, Calculated 0.6 mg/dL (0.2-0.8); Bilirubin Total 0.8 mg/dL (0.2-1.0); Globulin 3.7 g/dL (2.3-3.5); Magnesium 3.1 mg/dL (1.6-2.4); Potassium 4.2 mEq/L (3.5-5.1); Protein, Total 8.2 g/dL (6.4-8.2); Troponin High Sensitivity 10.5 pg/mL (<58.9)
[2024-06-27] MEDS ORDERED: NA CHLORIDE 0.9% 1,000 ML ONE (15:08)
--- NOTE | 2024-06-27 16:53 | EDPHYS ---
Physician Documentation [facility] Name: Garland Hidalgo Age: 53 yrs Sex: Male : 1970 Arrival Date: 06/27/2024 Time: 12:07 Bed 17 Private MD: ED Physician Rocky Lemon HPI: 06/27 16:46 This 53 yrs old Male presents to ER via Ambulatory with complaints of Blurred prabha Vision, cramping all over body., Dizziness. 16:46 The patient presents with dizziness, feeling faint, generalized weakness, prabha lightheadedness. Onset: The symptoms/episode began/occurred 2 day(s) ago. Context: occurred at work, occurred while the patient was working. Modifying factors: The symptoms are alleviated by lying down, the symptoms are aggravated by standing up. Associated signs and symptoms: Pertinent positives: near-syncope. Severity of symptoms: At their worst the symptoms were moderate in the emergency department the symptoms are unchanged. Patient's baseline: Neuro: alert and fully oriented. The patient has experienced similar episodes in the past, several times. Historical: - Allergies: 12:35 PENICILLINS; ko1 12:35 TETRACYCLINES; ko1 - Home Meds: 12:35 albuterol sulfate 2.5 mg /3 mL (0.083 %) Inhl nebu 3 mL 3 times per day [Active]; ko1 Advair Diskus Inhl 1 puff daily [Active]; 12:37 lisinopril 40 mg oral tablet 1 tab once [Active]; aspirin 81 mg Oral tablet, delayed ko1 release (enteric coated) 1 tab once [Active]; - PMHx: 12:37 Asthma; Hyperlipidemia; Hypertension; ko1 - Immunization history:: Adult Immunizations up to date. - Infectious Disease History:: Denies. - Social history:: Smoking status: Patient/guardian denies using tobacco, but has a distant history of tobacco abuse. - Family history:: not pertinent. ROS: 16:46 Constitutional: Negative for fever, chills, and weight loss, Eyes: Negative for injury, prabha pain, redness, and discharge, ENT: Negative for injury, pain, and discharge, Neck: Negative for injury, pain, and swelling, Respiratory: Negative for shortness of breath, cough, wheezing, and pleuritic chest pain, Abdomen/GI: Negative for abdominal pain, nausea, vomiting, diarrhea, and constipation, Back: Negative for injury and pain, : Negative for injury, bleeding, discharge, and swelling, MS/Extremity: Negative for injury and deformity, Skin: Negative for injury, rash, and discoloration, Neuro: Negative for headache, weakness, numbness, tingling, and seizure, Psych: Negative for depression, anxiety, suicide ideation, homicidal ideation, and hallucinations, Allergy/Immunology: Negative for hives, rash, and allergies, Endocrine: Negative for neck swelling, polydipsia, polyuria, polyphagia, and marked weight changes, Hematologic/Lymphatic: Negative for swollen nodes, abnormal bleeding, and unusual bruising, 16:46 Cardiovascular: Positive for palpitations, Exam: 16:46 Constitutional: This is a well developed, well nourished patient who is awake, alert, prabha and in no acute distress. Head/Face: Normocephalic, atraumatic. Eyes: Pupils equal round and reactive to light, extra-ocular motions intact. Lids and lashes normal. Conjunctiva and sclera are non-icteric and not injected. Cornea within normal limits. Periorbital areas with no swelling, redness, or edema. ENT: Nares patent. No nasal discharge, no septal abnormalities noted. Tympanic membranes are normal and external auditory canals are clear. Oropharynx with no redness, swelling, or masses, exudates, or evidence of obstruction, uvula midline. Mucous membranes moist. Neck: Trachea midline, no thyromegaly or masses palpated, and no cervical lymphadenopathy. Supple, full range of motion without nuchal rigidity, or vertebral point tenderness. No Meningismus. Chest/axilla: Normal chest wall appearance and motion. Nontender with no deformity. No lesions are appreciated. Respiratory: Lungs have equal breath sounds bilaterally, clear to auscultation and percussion. No rales, rhonchi or wheezes noted. No increased work of breathing, no retractions or nasal flaring. Abdomen/GI: Soft, non-tender, with normal bowel sounds. No distension or tympany. No guarding or rebound. No evidence of tenderness throughout. Back: No spinal tenderness. No costovertebral tenderness. Full range of motion. Male : Normal genitalia with no discharge or lesions. Skin: Warm, dry with normal turgor. Normal color with no rashes, no lesions, and no evidence of cellulitis. MS/ Extremity: Pulses equal, no cyanosis. Neurovascular intact. Full, normal range of motion. Neuro: Awake and alert, GCS 15, oriented to person, place, time, and situation. Cranial nerves II-XII grossly intact. Motor strength 5/5 in all extremities. Sensory grossly intact. Cerebellar exam normal. Normal gait. Psych: Awake, alert, with orientation to person, place and time. Behavior, mood, and affect are within normal limits. 16:46 Cardiovascular: Rate: tachycardic, actual rate is 109 bpm, Rhythm: regular, Pulses: Pulses are 4+ in bilateral radial, brachial, femoral, popliteal, posterior tibial and and dorsalis pedis arteries.. Heart sounds: normal, Edema: is not appreciated, JVD: is not appreciated, 16:46 ECG was reviewed by the Attending Physician. Vital Signs: 12:29 BP 90 / 56; Pulse 109; Resp 18; Temp 97; Pulse Ox 98% ; ko1 17:18 BP 129 / 67; Pulse 105; Resp 18 S; Pulse Ox 95% on R/A; kc6 18:10 BP 131 / 75; Pulse 99; Resp 18 S; Pulse Ox 98% on R/A; kc6 MDM: 12:40 Patient medically screened. prabha 16:48 Differential diagnosis: cardiac arrhythmia, CVA, generalized weakness, hypovolemia, prabha idiopathic dizziness, near-syncope, TIA, vertigo. Data reviewed: vital signs, nurses notes, lab test result(s), EKG, radiologic studies, CT scan, plain films. Consideration of Admission/Observation Patient was admitted/placed on observation. Escalation of care including admission/observation considered. I considered the following discharge prescriptions or medication management in the emergency department Medications were administered in the Emergency Department. See MAR. Independent interpretation of the following test(s) in the Emergency Department EKG: See my EKG interpretation above. Test considered but Not performed: CT: NO CT STONE. Historians other than the Patient: Spouse/Significant Other: WELL INFORMED. Care significantly affected by the following chronic conditions: Hypertension, Obesity, ASTHMA. 06/27 12:25 Order name: Basic Metabolic Panel; Complete Time: 16:38 prabha 06/27 12:25 Order name: CBC with Diff; Complete Time: 16:38 [facility] 06/27 12:25 Order name: LFT's; Complete Time: 16:38 [facility] 06/27 12:25 Order name: Magnesium; Complete Time: 16:38 06/27 12:25 Order name: NT PRO-BNP; Complete Time: 16:38 [facility] 06/27 12:25 Order name: PT-INR; Complete Time: 16:38 [facility] 06/27 12:25 Order name: Troponin HS; Complete Time: 16:38 [facility] 06/27 12:25 Order name: Lipase; Complete Time: 16:38 [facility] 06/27 12:25 Order name: Urinalysis w/ reflexes; Complete Time: 16:38 [facility] 06/27 16:38 Order name: CPK 06/27 12:25 Order name: XRAY Chest (1 view); Complete Time: 16:38 [facility] 06/27 12:25 Order name: Cardiac monitoring; Complete Time: 17:18 [facility] 06/27 12:25 Order name: EKG - Nurse/Tech; Complete Time: 14:03 [facility] 06/27 12:25 Order name: IV Saline Lock; Complete Time: 13:52 [facility] 06/27 12:25 Order name: Labs collected and sent; Complete Time: 13:52 [facility] 06/27 12:25 Order name: O2 Per Protocol; Complete Time: 17:18 [facility] 06/27 12:25 Order name: O2 Sat Monitoring; Complete Time: 17:18 [facility] EC:46 Rate is 94 beats/min. Rhythm is regular. QRS [place] is Normal. [place] interval is normal. QRS prabha interval is normal. QT interval is normal. No Q waves. T waves are Normal. No ST changes noted. Clinical impression: Normal ECG and No evidence of ischemia. Interpreted by me. Reviewed by me. Administered Medications: 15:12 Drug: NS 0.9% IV 1000 ml IV at 1 bolus Per protocol; 1000 mL bolus Route: IV; Rate: 1 ko1 bolus; Site: right antecubital; 16:06 Follow up: Response: No adverse reaction; IV Status: Completed infusion; IV Intake: ko1 1000ml 17:01 Drug: NS 0.9% IV 1000 ml IV at 1 bolus Per protocol; 1000 mL bolus Route: IV; Rate: 1 mb9 bolus; Site: right antecubital; 17:01 Drug: NS 0.9% IV 1000 ml IV at 1 bolus Per protocol; 1000 mL bolus Route: IV; Rate: 1 mb9 bolus; Site: right antecubital; Disposition Summary: 06/27/24 16:52 Hospitalization Ordered Notes: Hospitalization Status: Observation prabha Location: Telemetry/MedSurg (observation) prabha Condition: Fair prabha Problem: new prabha Symptoms: have improved prabha Bed/Room Type: Standard prabha Provider: Subhash Mills(06/27/24 17:04) prabha Room Assignment: 230(06/27/24 17:37) jaKwame Diagnosis - Heat exhaustion, unspecified prabha - Hypotension, unspecified prabha - Acute kidney failure, unspecified prabha Forms: - Medication Reconciliation Form prabha - SBAR form prabha - Leadership Thank You Letter prabha Critical care time excluding procedures: 16:48 Critical care time: Bedside Care: 20 minutes, Consultation: 10 minutes, Family prabha Intervention: 5 minutes. Total time: 35 minutes Signatures: Dispatcher [employer] EDMS Shyanne Ramirez Corey, MD MD cha Aguilar, Jose RN RN [id number] Lindsey Ha RN RN Vilma Parson RN RN mb9 Corrections: (The following items were deleted from the chart) 12:26 12:26 Chest Single View+RAD.RAD.[email or web address] ordered. EDMS EDMS 12:38 12:35 Home Meds: Proventil Inhl 2.5 mg as needed; toro ko1 17:04 16:52 Palmira Mota prabha prabha 17:27 16:52 prabha bd 17:34 17:27 230 bd bd 17:37 17:34 208 bd ja1
--- NOTE | 2024-06-27 16:53 | ER ---
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 Coronavirus screen: At this time, the client does not indicate any symptoms associated with coronavirus-19. Ebola Screen: No symptoms or risks identified at this time. Initial Sepsis Screen: Does the patient meet any 2 criteria? No. Patient's initial sepsis screen is negative. Does the patient have a suspected source of infection? No. Patient's initial sepsis screen is negative. Risk Assessment: Do you want to hurt yourself or someone else? Patient reports no desire to harm self or others. Onset of symptoms was June 27, 2024. 12:29 Method Of Arrival: Ambulatory ko1 12:29 Acuity: PETER 3 ko1 Triage Assessment: 12:37 General: Appears in no apparent distress. Behavior is calm, cooperative, appropriate ko1 for age. Pain: Complains of pain in all over cramps. Historical: - Allergies: 12:35 PENICILLINS; ko1 12:35 TETRACYCLINES; ko1 - Home Meds: 12:35 albuterol sulfate 2.5 mg /3 mL (0.083 %) Inhl nebu 3 mL 3 times per day [Active]; ko1 Advair Diskus Inhl 1 puff daily [Active]; 12:37 lisinopril 40 mg oral tablet 1 tab once [Active]; aspirin 81 mg Oral tablet, delayed ko1 release (enteric coated) 1 tab once [Active]; - PMHx: 12:37 Asthma; Hyperlipidemia; Hypertension; ko1 - Immunization history:: Adult Immunizations up to date. - Infectious Disease History:: Denies. - Social history:: Smoking status: Patient/guardian denies using tobacco, but has a distant history of tobacco abuse. - Family history:: not pertinent. Screenin:[address] [facility] ED Fall Risk Assessment (Adult) History of falling in the last 3 months, kc6 including since admission No falls in past 3 months (0 pts) Confusion or Disorientation No (0 pts) Intoxicated or Sedated No (0 pts) Impaired Gait No (0 pts) Mobility Assist Device Used No (0 pt) Altered Elimination No (0 pt) Score/Fall Risk Level 0 - 2 = Low Risk. Abuse screen: Denies threats or abuse. Denies injuries from another. Nutritional screening: No deficits noted. Tuberculosis screening: No symptoms or risk factors identified. Assessment: 17:19 General: Appears in no apparent distress. comfortable, well groomed, well developed, kc6 Behavior is calm, cooperative, appropriate for age. Neuro: Level of Consciousness is awake, alert, obeys commands, Oriented to person, place, time, situation, Appropriate for age Reports blurred vision dizziness, weakness. Cardiovascular: Denies chest pain, shortness of breath, Capillary refill < 3 seconds. Respiratory: Airway is patent Trachea midline Respiratory effort is even, unlabored, Respiratory pattern is regular, symmetrical. GI: No signs and/or symptoms were reported involving the gastrointestinal system. : No signs and/or symptoms were reported regarding the genitourinary system. EENT: No signs and/or symptoms were reported regarding the EENT system. Derm: No signs and/or symptoms reported regarding the dermatologic system. Skin is intact, is healthy with good turgor, Skin is pink, warm \T\ dry. Musculoskeletal: No signs and/or symptoms reported regarding the musculoskeletal system. Circulation, motion, and sensation intact. Capillary refill < 3 seconds, Range of motion: intact in all extremities. 18:10 Reassessment: Patient appears in no apparent distress at this time. No changes from kc6 previously documented assessment. Patient and/or family updated on plan of care and expected duration. Pain level reassessed. Patient is alert, oriented x 3, equal unlabored respirations, skin warm/dry/pink. Patient states feeling better. Patient states symptoms have improved. Vital Signs: 12:29 BP 90 / 56; Pulse 109; Resp 18; Temp 97; Pulse Ox 98% ; ko1 17:18 BP 129 / 67; Pulse 105; Resp 18 S; Pulse Ox 95% on R/A; kc6 18:10 BP 131 / 75; Pulse 99; Resp 18 S; Pulse Ox 98% on R/A; kc6 ED Course: 12:12 Patient arrived in ED. ra3 12:25 Rocky Lemon MD is Attending Physician. prabha 12:35 Triage completed. ko1 12:37 Arm band placed on right wrist. Patient placed in waiting room, Patient notified of ko1 wait time. 13:25 XRAY Chest (1 view) In Process Unspecified. EDMS 13:52 Initial lab(s) drawn, by me, sent to lab. Inserted saline lock: 22 gauge in right mb9 antecubital area, using aseptic technique. Blood collected. Flushed with 10 mL NS. 13:52 Basic Metabolic Panel Sent. mb9 13:52 CBC with Diff Sent. mb9 13:52 LFT's Sent. mb9 13:52 Magnesium Sent. mb9 13:52 NT PRO-BNP Sent. mb9 13:52 PT-INR Sent. mb9 13:52 Troponin HS Sent. mb9 14:01 EKG done, by ED staff, reviewed by Rocky Lemon MD. mb9 16:51 Palmira Mota MD is Hospitalizing Provider. prabha 17:04 Subhash Mills MD is Hospitalizing Provider. prabha 17:10 Tasha Reyes, RN is Primary Nurse. kc6 17:12 Patient has correct armband on for positive identification. Placed in gown. Bed in low kc6 position. Call light in reach. Side rails up X2. Adult w/ patient. school lunch monitor on. Pulse ox on. NIBP on. Pillow given. 18:19 No provider procedures requiring assistance completed. Patient admitted, IV remains in mb9 place. Administered Medications: 15:12 Drug: NS 0.9% IV 1000 ml IV at 1 bolus Per protocol; 1000 mL bolus Route: IV; Rate: 1 ko1 bolus; Site: right antecubital; 16:06 Follow up: Response: No adverse reaction; IV Status: Completed infusion; IV Intake: ko1 1000ml 17:01 Drug: NS 0.9% IV 1000 ml IV at 1 bolus Per protocol; 1000 mL bolus Route: IV; Rate: 1 mb9 bolus; Site: right antecubital; 17:01 Drug: NS 0.9% IV 1000 ml IV at 1 bolus Per protocol; 1000 mL bolus Route: IV; Rate: 1 mb9 bolus; Site: right antecubital; Medication: 18:19 VIS not applicable for this client. mb9 Intake: 16:06 IV: 1000ml; Total: 1000ml. ko1 Outcome: 16:52 Decision to Hospitalize by Provider. prabha 18:19 Admitted to Med/surg accompanied by tech, via wheelchair, room 230, mb9 18:19 Condition: stable 18:19 Instructed on the need for admit, 18:19 Patient left the ED. mb9 Signatures: Dispatcher [employer] EDRocky Abraham MD MD cha Campbell, Kaitlyn RN RN kc6 Lindsey Ha RN RN ko1 Vilma Hills RN RN mb9 Fransisca Olea ra3 Corrections: (The following items were deleted from the chart) 12:38 12:35 Home Meds: Proventil Inhl 2.5 mg as needed; ko1 ko1
[2024-06-27] MEDS ORDERED: NA CHLORIDE 0.9% 2,000 ML ONE (16:57)
[2024-06-27] MEDS ORDERED: ONDANSETRON 4 MG/2 ML VIAL IV PRN (18:29)
[2024-06-27] MEDS ORDERED: ACETAMINOPHEN 325 MG TABLET PO PRN (18:32)
[2024-06-27] MEDS ORDERED: MORPHINE 2 MG/ML SYR IV PRN (18:34)
[2024-06-27] MEDS ORDERED: D50W 25 GM/50 ML SYRINGE IV PRN (18:55)
[2024-06-27] MEDS ORDERED: GLUCAGON 1 MG/VIAL IM PRN (18:55)
[2024-06-27] MEDS ORDERED: HYDRALAZINE HCL 20 MG/ML VIAL IV PRN ×2 (18:56→19:02)
--- NOTE | 2024-06-27 19:02 | P.HP ---
Certification for Inpatient Patient admitted to: Observation With expected LOS: <2 Midnights Patient will require the following post-hospital care: None Practitioner: I am a practitioner with admitting privileges, knowledge of patient current condition, hospital course, and medical plan of care. Services: Services provided to patient in accordance with Admission requirements found in Title 42 Section 412.3 of the Code of Federal Regulations Patient History Date of Service: 06/27/24 Primary Care Provider: Lina Reason for admission: acute renal failure History of Present Illness: Patient came to the ER for dizziness and headache. He has not been using NSAIDs not working in the sun. he was found to have a creatine of 2.55. His baseline was 0.85 He was on metformin for hyperglycemia. This may have contributed to his creatine. he has not had any GI symptoms or recent infection. He is doing well otherwise. Allergies Penicillins Allergy (Unverified 02/24/16 16:08) Unknown Tetracyclines Allergy (Unverified 02/24/16 16:08) Unknown Review of Systems 10-point ROS is otherwise unremarkable General: Weakness, Malaise Physical Examination - Physical Exam General: Alert, In no apparent distress HEENT: Atraumatic, PERRLA, Mucous membr. moist/pink, EOMI, Sclerae nonicteric Neck: Supple, 2+ carotid pulse no bruit, No LAD, Without JVD or thyroid abnormality Respiratory: Clear to auscultation bilaterally, Normal air movement Cardiovascular: Regular rate/rhythm, Normal S1 S2 Gastrointestinal: Normal bowel sounds, No tenderness Musculoskeletal: No tenderness Integumentary: No rashes Neurological: Normal gait, Normal speech, Normal strength at 5/5 x4 extr, Normal tone, Normal affect Lymphatics: No axilla or inguinal lymphadenopathy - Studies Laboratory Data (last 24 hrs) 06/27/24 06/27/24 06/27/24 13:50 13:50 13:50 WBC 7.00 Hgb 15.6 Hct 47.8 Plt Count 294 PT 12.1 INR 1.08 Sodium 134 L Potassium 4.2 BUN 43 H Creatinine 2.55 H Glucose 101 Magnesium 3.1 H Total Bilirubin 0.8 AST 23 ALT 38 Alkaline Phosphatase 68 Lipase 48 Assessment and Plan - Problems (Diagnosis) (1) Acute renal failure Current Visit: Yes Status: Acute Plan: continue agressive fluid hydration. Will monitor creatine. Hold lisinopril and metformin Qualifiers: Acute renal failure type: unspecified Qualified Code(s): N17.9 - Acute kidney failure, unspecified (2) HTN (hypertension) Current Visit: Yes Status: Acute Plan: hold lisinopril. Will use hydralazine prn Qualifiers: Hypertension type: primary hypertension Qualified Code(s): I10 - Essential (primary) hypertension (3) Gout Current Visit: Yes Status: Chronic Plan: will continue allopurinol and check a uric acid on the patient Qualifiers: Chronicity: chronic Presence of tophus: without tophus (4) Hyperglycemia Current Visit: Yes Status: Chronic Plan: hold metformin. Will cont sliding scale as needed Discharge Plan: Home Plan to discharge in: 24 Hours - Advance Directives Does patient have a Living Will: No Does patient have a Durable POA for Healthcare: No - Code Status/Comfort Care Code Status Assessed: No Code Status: Full Code Physician Review: Patient Assessed, Agree with Above Assessment and Plan Critical Care: No Time Spent Managing Pts Care (In Minutes): 20
[2024-06-27] MEDS ORDERED: D10W 125 ML IV PRN (19:23)
[2024-06-27 19:30] VITALS: BMI 39.5
[2024-06-27 20:12] VITALS: O2SAT 96
[2024-06-27] MEDS: NA CHLORIDE 0.9% 1,000 ML IV SCH (22:16)
[2024-06-28 05:01] LABS: Absolute Basophils 0.1 K/uL (0-0.5); Absolute Eosinophils 0.1 K/uL (0-0.5); Absolute Lymphocytes (CBC) 2.1 K/uL (0.7-4.9); Absolute Monocytes 0.5 K/uL (0.1-1.3); Absolute Neutrophil 2.1 K/uL (1.8-8.0); Basophils % 1.1 % (0-1.3); Hemoglobin 13.1 g/dL (13.6-17.9); MCH 30.9 pg (27.0-35.0); MCHC 33.5 g/dL (32.0-36.0); MCV 92.3 fL (80-100); MPV 9.3 fL (7.6-11.3); Monocytes % 9.9 % (3.3-12.3); Nucleated Red Blood Cells % 0.2 % (0-0); Platelets 210 thou/uL (152-406); RBC Red Blood Cell Count 4.23 M/uL (4.33-5.43); Red Cell Distribution Width 13.2 % (12.1-15.2)
[2024-06-28 05:08] LABS: Anion Gap 6.6 mEq/L (5.0-15.0); Potassium 4.6 mEq/L (3.5-5.1); Uric Acid 7.4 mg/dL (3.5-7.2)
[2024-06-28] MEDS: INSULIN LISPRO 100 UNIT/ML SQ SCH (08:00)
[2024-06-28] MEDS: ASPIRIN EC 81 MG TAB PO SCH (08:21)
[2024-06-28] MEDS: allopurinoL 100 MG TAB PO SCH (08:21)
--- NOTE | 2024-06-28 08:38 | P.DS ---
Admission Date: 06/27/24 Discharge Date: 06/28/24 Primary Care Provider: Lina Reason for Admission: acute renal failure - Problems (1) Acute renal failure Current Visit: Yes Status: Acute Qualifiers: Acute renal failure type: unspecified Qualified Code(s): N17.9 - Acute kidney failure, unspecified (2) HTN (hypertension) Current Visit: Yes Status: Acute Qualifiers: Hypertension type: primary hypertension Qualified Code(s): I10 - Essential (primary) hypertension (3) Gout Current Visit: Yes Status: Chronic Qualifiers: Chronicity: chronic Presence of tophus: without tophus (4) Hyperglycemia Current Visit: Yes Status: Chronic Brief History of Present Illness: Patient came to the ER for dizziness and headache. He has not been using NSAIDs not working in the sun. he was found to have a creatine of 2.55. His baseline was 0.85 He was on metformin for hyperglycemia. This may have contributed to his creatine. he has not had any GI symptoms or recent infection. He is doing well otherwise. Hospital Course: renal failure has resolved. Will discharge the patient. Can follow up with me in a week. The patient should stop metformin till he follow up with me. currently eating and peeing Vital Signs/Physical Exam: Temp Pulse Resp BP Pulse Ox 97.5 F 88 17 118/70 94 06/28/24 04:00 06/28/24 04:00 06/28/24 04:00 06/28/24 04:00 06/28/24 04:00 General: Alert, In no apparent distress HEENT: Atraumatic, PERRLA, EOMI Neck: Supple, JVD not distended Respiratory: Clear to auscultation bilaterally, Normal air movement Cardiovascular: Regular rate/rhythm, Normal S1 S2 Gastrointestinal: Normal bowel sounds, No tenderness Musculoskeletal: No tenderness Integumentary: No rashes Neurological: Normal speech, Normal tone, Normal affect Lymphatics: No axilla or inguinal lymphadenopathy Laboratory Data at Discharge: WBC 4.80 thou/uL (4.3-10.9) 06/28/24 04:35 Hgb 13.1 g/dL (13.6-17.9) L D 06/28/24 04:35 Hct 39.0 % (39.6-49.0) L 06/28/24 04:35 Plt Count 210 thou/uL (152-406) D 06/28/24 04:35 PT 12.1 SECONDS (9.4-12.5) 06/27/24 13:50 INR 1.08 06/27/24 13:50 Sodium 139 mEq/L (136-145) D 06/28/24 04:35 Potassium 4.6 mEq/L (3.5-5.1) 06/28/24 04:35 BUN 30 mg/dL (7-18) H 06/28/24 04:35 Creatinine 1.02 mg/dL (0.70-1.30) 06/28/24 04:35 Glucose 108 mg/dL (74-106) H 06/28/24 04:35 Uric Acid Cancelled 06/28/24 06:00 Magnesium 3.1 mg/dL (1.6-2.4) H 06/27/24 13:50 Total Bilirubin 0.8 mg/dL (0.2-1.0) 06/27/24 13:50 AST 23 U/L (15-37) 06/27/24 13:50 ALT 38 U/L (16-61) 06/27/24 13:50 Alkaline Phosphatase 68 U/L (45-117) 06/27/24 13:50 Lipase 48 U/L (13-75) 06/27/24 13:50 Diet: Regular Activity: Ad pieter Followup: Subhash Mills MD [Primary Care Provider] - 1 Week Physician Review: Patient Assessed, Agree with Above Assessment and Plan Time spent managing pt's care (in minutes): 20
[2024-06-28 09:17] VITALS: BP 124/70; TEMP 97.6
[2024-06-28] MEDS ORDERED: ENOXAPARIN 40 MG/0.4 ML SQ SCH (17:00)
--- NOTE | 2024-06-29 13:37 | EKG ---
Test Date: 2024-06-27 Test Time: 13:58:40 Domestic Technician: MB MEASUREMENT RESULTS: Intervals: Rate: 94 OK: 154 QRSD: 120 QT: 348 QTc: 435 [place]: P: 36 OK: 154 QRS: -9 T: 45 INTERPRETIVE STATEMENTS: Normal sinus rhythm Normal ECG Compared to ECG 02/21/2017 17:04:13 Right bundle-branch block no longer present Electronically Signed On 06-29-24 13:32:09 CDT by João Brown
== END 2024-06-28 10:20 | disposition home or self-care (01) ==
LOC: ER 12:07 → ERHOLD 17:06 → 2ND 17:31
PROVIDERS: ADMIT Internal Medicine; ATTEND Internal Medicine
DX: N17.9 Acute kidney failure, unspecified (principal); I10 Essential (primary) hypertension; M10.9 Gout, unspecified; R73.9 Hyperglycemia, unspecified; E78.5 Hyperlipidemia, unspecified; J45.909 Unspecified asthma, uncomplicated; Z88.0 Allergy status to penicillin; Z88.1 Allergy status to other antibiotic agents
CPT/HCPCS: 36415; 71045; 80048; 80076; 81001; 82947; 83690; 83735; 83880; 84484; 84550; 85025; 85610; 93005; 96360; 99285; G0378; J7030

== ENCOUNTER 2025-02-25 14:11 | Emergency (ER) | payer BC, OTHER ==
--- OUTSIDE RECORDS SUMMARY | 2025-02-25 14:17 | XMS REPORT | Continuity of Care Document ---
Author Name Unknown Address [address] [place] [address] [facility] [place] Address [address] [place] [address] Care Team Providers Care Rolfer Name Role Phone MALKA LUTZ Attending Clinician Unavailab shahzad FLEMING Attending Clinician Unavailable Doctor Unassigned, [place] Attending Clinician U Bharti Black Attending Clinician [phone] Malka Lutz MD Attending Clinician [phone] MALKA LUTZ Admitting Clinician Unavailab shahzad FLEMING Admitting Clinician Unavailable Malka Lutz MD Admitting Clinician [phone] Problems Condition Name Condition Details Condition Category Status Onset Date Resolution Date Last Treatment Date Treating Clinician Comments Source Snake bite, initial encounter Snake bite, initial encounter Disease Active 02-02 00:00: 00 [facility] Allergies, Adverse Reactions, Alerts Allergy Name Allergy Type Status Severity Reaction(s) Onset Date Inactive Date Treating Clinician Comments Source Penicill in Propensi ty to adverse reaction s Active Unknown - See comments 02-02 00:00: 00 Pt unsure. [facility] Tetracyc line Propensi ty to adverse reaction s Active Unknown - See comments 02-02 00:00: 00 Pt unsure. [facility] PENICILL IN DRUG INGREDI Active Unknown-Cmnt 02-02 00:00: 00 [facility] TETRACYC LINE DRUG INGREDI Active Unknown-Cmnt 02-02 00:00: 00 [facility] Social History Social Habit Start Date Stop Date Quantity Comments Source Exposure to SARS-CoV-2 (event) Not sure [facility] Sex Assigned At 1970 00:00:00 1970 00:00:00 [facility] Smoking Status Start Date Stop Date Source Unknown if ever smoked [facility] Medications Ordered Medication Name Filled Medication Name Start Date Stop Date Current Medication? Ordering Clinician Indication Dosage Frequency Signature (SIG) Comments Components Source crotalidae polyval immune phillip (CROFAB) injection 2 Vial 02-03 13:28: 00 02-04 03:50 :00 No 2{vial} 2 Vial, Intravenou s, Q6H ABX, 3 doses, First dose (after last reorder) on Tue02/03/21 at 0730, Last dose on Tue02/03/21 at 1930, Routine [facility] lactated ringers IV infusion 1,000 mL 02-03 06:15: 00 Yes 1000mL at 125 mL/hr, 1,000 mL, IV Infusion, CONTINUOUS , Starting Tue02/03/21 at 0015, Until Discontinu ed, Routine [facility] crotalidae polyval immune phillip (CROFAB) injection 4 Vial 02-03 05:15: 00 02-03 05:50 :00 No 4{vial} 4 Vial, Intravenou s, ONCE, 1 dose, Tue02/02/21 at 2315, Routine [facility] morpHINE injection 4 mg 02-03 05:09: 56 Yes 4mg 4 mg, Slow IV Push, Q4HPRN, Starting Tue02/02/21 at 2309, Until Discontinu ed, Routine, Pain (scale 7-10) [facility] No known medications No Un stuart [facility] No known medications No Un stuart [facility] Vital Signs Vital Name Observation Time Observation Value Comments Lamar cope Systolic blood pressure 2021-02-04 15:00:00 148 mm[Hg] [facility] Diastolic blood pressure 2021-02-04 15:00:00 92 mm[Hg] [facility] Heart rate 2021-02-04 15:00:00 87 /min [facility] Respiratory rate 2021-02-04 15:00:00 24 /min [facility] Oxygen saturation in Arterial blood by Pulse oximetry 2021-02-04 15:00:00 95 /min [place] [facility] Body temperature 2021-02-04 14:00:00 37 Preeti [facility] Body weight 2021-02-03 04:47:00 111.131 kg [facility] Procedures Procedure Date / Time Performed Performing Clinician Source EXTERNAL PROVIDER RECORDS 2021-02-11 05:01:00 Doctor Unassigned, [place] [facility] PHOSPHORUS 2021-02-04 10:28:00 Melba [facility] CBC WITH DIFF 2021-02-04 10:28:00 Melba [facility] PROTHROMBIN TIME / INR 2021-02-03 09:37:00 Melba [facility] ACTIVATED PARTIAL THRMPLAS EPIFANIO 2021-02-03 09:37:00 Melba [facility] FIBRINOGEN 2021-02-03 09:37:00 Melba [facility] PHOSPHORUS 2021-02-03 08:51:00 Melba [facility] MAGNESIUM 2021-02-03 08:51:00 Melba [facility] BASIC METABOLIC PANEL (NA, K, CL, CO2, GLUCOSE, BUN, CREATININE, CA) 2021-02-03 08:51:00 Melba [facility] CBC WITH DIFF 2021-02-03 08:51:00 Melba [facility] EXTRA TUBE LT. BLUE 2021-02-03 08:51:00 Adrian Lutz am [facility] MRSA / MSSA SCREEN BY PCR, MAGDA 2021-02-03 06:54:00 Melba [facility] URINALYSIS 2021-02-03 05:38:00 Melba [facility] CBC WITH DIFF 2021-02-03 05:09:00 Melba [facility] BASIC METABOLIC PANEL (NA, K, CL, CO2, GLUCOSE, BUN, CREATININE, CA) 2021-02-03 05:08:00 Melba, [facility] PROTHROMBIN TIME / INR 2021-02-03 05:08:00 Melba [facility] ACTIVATED PARTIAL THRMPLAS EPIFANIO 2021-02-03 05:08:00 Andreea Reilly [facility] FIBRINOGEN 2021-02-03 05:08:00 Melba Andreea [facility] HOSPITAL ADMISSION 2021-02-02 06:01:00 Doctor Un assigned, [place] [facility] Encounters Start Date/Time End Date/Time Encounter Type Admission Type Attending Clinicians Care Facility Care Department Encounter ID Source 2021-02-02 22:48:00 Inpatient X MALKA LUTZ [facility] [id number] [facility] 2022-06-08 11:29:00 2022-06-08 11:29:00 Outpatient AMBREEN_TODD CARMEN [facility] [id number] [facility] 2021-02-11 00:00:00 2021-02-11 00:00:00 Orders Only Doctor Unassigned, [place] [facility] [id number] [facility] 2021-02-05 00:00:00 2021-02-05 00:00:00 Transition of Care Basim Bharti [facility] [id number] [facility] 2021-02-02 22:48:00 2021-02-04 10:00:00 Hospital Encounter Malka Lutz [facility] [id number] [facility] Results Test Description Test Time Test Comments Results Result Co mments Source [facility] with [id number] 11:13:40* Test Item Value Reference Range Interpretation Comme nts WBC (test code = 6690-2) See_Comment [Automated messa ge] The system which generated this result transmitted reference range: 4.20 - 10.70 10*3/?L. The reference range was not used to interpret this result as normal/abnormal. RBC (test code = 789-8) See_Comment [[employer]] The system which generated this result transmitted [...] 32.9 g/dL 31.2-35.0 RDW-SD (test code = 13668-5) 44.5 fL 38.5-51.6 RDW-CV (test code = 788-0) 13.2 % 12.1-15.4 PLT (test code = 777-3) See_Comment [Automated [employer]] The system which generated this result transmitted reference range: 150 - 328 10*3/?L. The reference range was not used to interpret this result as normal/abnormal. MPV (test code = 89084-4) 11.1 fL 9.8-13.0 NRBC/100 WBC (test code = 5149879746) See_Comment [Automated Taxify ssage] The system which generated this result transmitted reference range: 0.0 - 10.0 /100 WBCs. The reference range was not used to interpret this result as normal/abnormal. NRBC x10^3 (test code = 5587765379) <0.01 See_Comment [Automated [employer] ssage] The system which generated this result transmitted reference range: 10*3/?L. The reference range was not used to interpret this result as normal/abnormal. GRAN MAT (NEUT) % (test code = 770-8) 58.9 % IMM GRAN % (test code = 5168940006) 0.30 % LYMPH % (test code = 736-9) 25.9 % MONO % (test code = 5905-5) 10.5 % EOS % (test code = 713-8) 3.8 % BASO % (test code = 706-2) 0.6 % GRAN MAT x10^3(ANC) (test code = 3083781058) 4.71 10*3/uL 1.99-6.95 IMM GRAN x10^3 (test code = 5949475916) <0.03 0.00-0.06 LYMPH x10^3 (test code = 731-0) 2.07 10*3/uL 1.09-3.23 MONO x10^3 (test code = 742-7) 0.84 10*3/uL 0.36-1.02 EOS x10^3 (test code = 711-2) 0.30 10*3/uL 0.06-0.53 BASO x10^3 (test code = 704-7) 0.05 10*3/uL 0.01-0.09 [facility]A Screen by Magda [id number] 22:01:29* Test Item Value Reference Range Interpretation Comme nts MSSA Screen by Magda DILLON (t est code = 73185-8) Negative Negative MRSA/MSSA Positive? (test co de = 0173262104) No No Lab Interpretation (test cod e = 94274-2) Normal [facility] CenterACTIV[facility] PARTIAL THRMPLAS [id number] 10:09:26* Test Item Value Reference Range Interpretation Comme nts APTT Patient (test code = 3173-2) See_Comment [Automated Mi[employer]urs[employer]a ge] The system which generated this result transmitted reference range: 26 - 36 Seconds. The reference range was not used to interpret this result as normal/abnormal. Lab Interpretation (test code = 26055-5) Normal [facility] Center[facility]IB[facility]INOGEN2021-03-09 10:09:26* Test Item Value Reference Range Interpretation Comme nts Fibrinogen (test code = 9629668219) 274 mg/dL 167-453 Lab Interpretation (test cod e = 41955-4) Normal [facility] CenterPROTHROMBIN TIME / [id number] 10:09:26* Test Item Value Reference Range Interpretation Comme nts PROTIME PATIENT (test code = 5964-2) See_Comment H [Automated messa ge] The system which generated this result transmitted reference range: 10.1 - 12.6 Seconds. The reference range was not used to interpret this result as normal/abnormal. INR (test code = 6301-6) Normal INR <1.1; Warfarin Therapeutic range 2.0 to 3.0 or 2.5 to 3.5, depending upon the indications. Lab Interpretation (test code = 20816-0) Abnormal [facility] CenterMagnesium [id number] 09:27:57* Test Item Value Reference Range Interpretation Comme nts MAGNESIUM (test code = 9865157810) 1.7 mg/dL 1.7-2.4 Lab Interpretation (test cod e = 71155-6) Normal [facility] CenterPhosphorus [id number] 09:27:57* Test Item Value Reference Range Interpretation Comme nts PHOSPHORUS (test code = 1154475549) 3.6 mg/dL 2.5-5.0 Lab Interpretation (test cod e = 93298-9) Normal [facility] METABOLIC PANEL (NA, K, CL, CO2, GLUCOSE, BUN, CREATININE, CA)2021-02-03 09:27:57* Test Item Value Reference Range Interpretation Comme nts NA (test code = 0987961019) 138 mmol/L 135-145 K (test code = 5214174612) 4.2 mmol/L 3.5-5.0 Slight hemolysis CL (test code = 6460178458) 106 mmol/L 98-108 CO2 TOTAL (test code = 7850698673) 24 mmol/L 23-31 AGAP (test code = 8780619896) 2-16 BUN (test code = 6671981469) 17 mg/dL 7-23 Slight hemolysis GLUCOSE (test code = 6829488010) 121 mg/dL 70-110 H CREATININE (test code = 8615553882) 0.61 mg/dL 0.60-1.25 CALCIUM (test code = 8159267644) 8.0 mg/dL 8.6-10.6 L eGFR Calculation (Non-) (test code = 8329618666) mL/min/1.73m2 eGFR Calculation () (test code = 9066049824) mL/min/1.73m2 BRE (test code = BRE) Association [...] imaging tests). Lab Interpretation (test code = 27359-1) Abnormal [facility] WITH [id number] 09:11:14* Test Item Value Reference Range Interpretation Comme nts WBC (test code = 6690-2) See_Comment H [Automated [employer]uriyo] The system which generated this result transmitted reference range: 4.20 - 10.70 10*3/?L. The reference range was not used to interpret this result as normal/abnormal. RBC (test code = 789-8) See_Comment [Automated [employer]] The system which generated this result transmitted [...] 32.4 g/dL 31.2-35.0 RDW-SD (test code = 45759-0) 43.5 fL 38.5-51.6 RDW-CV (test code = 788-0) 13.2 % 12.1-15.4 PLT (test code = 777-3) See_Comment [Automated messa ge] The system which generated this result transmitted reference range: 150 - 328 10*3/?L. The reference range was not used to interpret this result as normal/abnormal. MPV (test code = 24529-1) 11.2 fL 9.8-13.0 NRBC/100 WBC (test code = 1605660690) See_Comment [Automated [employer] ssage] The system which generated this result transmitted reference range: 0.0 - 10.0 /100 WBCs. The reference range was not used to interpret this result as normal/abnormal. NRBC x10^3 (test code = 4768034992) <0.01 See_Comment [Automated messa ge] The system which generated this result transmitted reference range: 10*3/?L. The reference range was not used to interpret this result as normal/abnormal. GRAN MAT (NEUT) % (test code = 770-8) 80.7 % IMM GRAN % (test code = 3493880305) 0.30 % LYMPH % (test code = 736-9) 11.3 % MONO % (test code = 5905-5) 7.3 % EOS % (test code = 713-8) 0.2 % BASO % (test code = 706-2) 0.2 % GRAN MAT x10^3(ANC) (test code = 0253356400) 9.88 10*3/uL 1.99-6.95 H IMM GRAN x10^3 (test code = 3588465564) 0.04 10*3/uL 0.00-0.06 LYMPH x10^3 (test code = 731-0) 1.39 10*3/uL 1.09-3.23 MONO x10^3 (test code = 742-7) 0.90 10*3/uL 0.36-1.02 EOS x10^3 (test code = 711-2) 0.03 10*3/uL 0.06-0.53 L BASO x10^3 (test code = 704-7) 0.03 10*3/uL 0.01-0.09 Lab Interpretation (test code = 00995-1) Abnormal [facility]IN[facility]IS2021-[facility]-09 06:31:43* Test Item Value Reference Range Interpretation Comme nts APPEARANCE (test code = 3261973425) Clear Clear COLOR (test code = 0638365288) Yellow Yellow PH (test code = 8421224349) 4.8-8.0 SP GRAVITY (test code = 0400823084) 1.003-1.030 GLU U QUAL (test code = 8768720305) Normal Normal BLOOD (test code = 9969836436) 1+ Negative A KETONES (test code = 3997022338) Negative Negative PROTEIN (test code = 2887-8) 30 mg/dL Negative A UROBILIN (test code = 9057898007) Normal Normal BILIRUBIN (test code = 9637679836) Negative Negative NITRITE (test code = 2440461511) Negative Negative LEUK MELA (test code = 1889050895) Negative Negative RBC/HPF (test code = 3503619879) <1 See_Comment [Automated [employer]yo] The system which generated this result transmitted reference range: 0 - 3 HPF. The reference range was not used to interpret this result as normal/abnormal. WBC/HPF (test code = 4471783608) See_Comment [Automated [employer]] The system which generated this result transmitted reference range: 0 - 5 HPF. The reference range was not used to interpret this result as normal/abnormal. BACTERIA (test code = 0344142375) Negative Negative MUCOUS (test code = 3650871982) Slight Negative LPF A Lab Interpretation (test code = 72736-6) Abnormal [facility] METABOLIC PANEL (NA, K, CL, CO2, GLUCOSE, BUN, CREATININE, CA)2021-02-03 05:37:13* Test Item Value Reference Range Interpretation Comme nts NA (test code = 4874810041) 141 mmol/L 135-145 K (test code = 0609805776) 3.7 mmol/L 3.5-5.0 Slight hemolysis CL (test code = 7638702816) 113 mmol/L 98-108 H CO2 TOTAL (test code = 2642046858) 22 mmol/L 23-31 L AGAP (test code = 8881345381) 2-16 BUN (test code = 8521829944) 16 mg/dL 7-23 Slight hemolysis GLUCOSE (test code = 0453592955) 109 mg/dL 70-110 CREATININE (test code = 1641280773) 0.53 mg/dL 0.60-1.25 L CALCIUM (test code = 9934569858) 7.0 mg/dL 8.6-10.6 L eGFR Calculation (Non-) (test code = 6886332723) mL/min/1.73m2 eGFR Calculation () (test code = 8252163993) mL/min/1.73m2 BRE (test code = BRE) Association [...] imaging tests). Lab Interpretation (test code = 57168-2) Abnormal [facility] CenterPROTHROMBIN TIME / [id number] 05:35:11* Test Item Value Reference Range Interpretation Comme [facility] PROTIME PATIENT (test code = 5964-2) See_Comment [Automated [employer]] The system which generated this result transmitted reference range: 10.1 - 12.6 Seconds. The reference range was not used to interpret this result as normal/abnormal. INR (test code = 6301-6) Normal INR <1.1; Warfarin Therapeutic range 2.0 to 3.0 or 2.5 to 3.5, depending upon the indications. Lab Interpretation (test code = 83063-1) Normal [facility] CenterACTIV[facility] PARTIAL THRMPLAS [id number] 05:35:11* Test Item Value Reference Range Interpretation Comme [facility] APTT Patient (test code = 3173-2) See_Comment L [Automated Curiyo] The system which generated this result transmitted reference range: 26 - 36 Seconds. The reference range was not used to interpret this result as normal/abnormal. Lab Interpretation (test code = 50090-5) Abnormal [facility] CenterFIBRINOGEN2021-03-09 05:35:11* Test Item Value Reference Range Interpretation Comme [facility] Fibrinogen (test code = 5485745209) 311 mg/dL 167-453 Lab Interpretation (test cod e = 09107-9) Normal [facility] WITH [id number] 05:27:33* Test Item Value Reference Range Interpretation Comme [facility] WBC (test code = 6690-2) See_Comment H [...] 33.4 g/dL 31.2-35.0 RDW-SD (test code = 33454-9) 43.0 fL 38.5-51.6 RDW-CV (test code = 788-0) 13.1 % 12.1-15.4 PLT (test code = 777-3) See_Comment [Automated message] The system which generated this result transmitted reference range: 150 - 328 10*3/?L. The reference range was not used to interpret this result as normal/abnormal. MPV (test code = 54328-4) 11.1 fL 9.8-13.0 NRBC/100 WBC (test code = 5467430239) See_Comment [Automated message] The system which generated this result transmitted reference range: 0.0 - 10.0 /100 WBCs. The reference range was not used to interpret this result as normal/abnormal. NRBC x10^3 (test code = 7151306148) <0.01 See_Comment [Automated message] The system which generated this result transmitted reference range: 10*3/?L. The reference range was not used to interpret this result as normal/abnormal. GRAN MAT (NEUT) % (test code = 770-8) 86.3 % IMM GRAN % (test code = 8474926283) 0.20 % LYMPH % (test code = 736-9) 6.0 % MONO % (test code = 5905-5) 7.0 % EOS % (test code = 713-8) 0.2 % BASO % (test code = 706-2) 0.3 % GRAN MAT x10^3(ANC) (test code = 7835804303) 14.38 10*3/uL 1.99-6.95 H IMM GRAN x10^3 (test code = 8765005946) 0.04 10*3/uL 0.00-0.06 LYMPH x10^3 (test code = 731-0) 1.00 10*3/uL 1.09-3.23 L MONO x10^3 (test code = 742-7) 1.17 10*3/uL 0.36-1.02 H EOS x10^3 (test code = 711-2) 0.03 10*3/uL 0.06-0.53 L BASO x10^3 (test code = 704-7) 0.05 10*3/uL 0.01-0.09 Lab Interpretation (test code = 33693-1) Abnormal [facility]"
[2025-02-25] MEDS ORDERED: NA CHLORIDE 0.9% 1,000 ML ONE (14:38)
[2025-02-25 14:46] LABS: Protime INR 1.06
--- NOTE | 2025-02-25 14:55 | RAD REPORT ---
EXAM: Chest Single View HISTORY: 54 years Male CHEST PAIN COMPARISON: 06/27/2024 FINDINGS: LUNGS/PLEURA: The lungs are clear. No pleural effusions or pneumothorax. No pulmonary edema. CARDIAC/MEDIASTINUM: The cardiac silhouette is within normal limits. UPPER ABDOMEN: No significant abnormality. BONES: No acute abnormality. LINES/TUBES/OTHER: N/A IMPRESSION: No evidence of acute cardiopulmonary disease.
[2025-02-25 15:04] LABS: ALT/SGPT 38 U/L (16-61); Albumin 4.1 g/dL (3.4-5.0); Albumin/Globulin Ratio 1.2 (1.1-1.8); Alkaline Phosphatase 68 U/L (45-117); Anion Gap 8.2 mEq/L (5.0-15.0); BUN Blood Urea Nitrogen 20 mg/dL (7-18); Bicarbonate 25 mEq/L (21-32); Bilirubin Total 0.5 mg/dL (0.2-1.0); Globulin 3.5 g/dL (2.3-3.5); Glomerular Filtration Rate 87 ml/min (=/>90); Glucose Level 110 mg/dL (74-106); NT PRO-BNP 14 pg/mL (<125); Protein, Total 7.6 g/dL (6.4-8.2); Sodium Level 139 mEq/L (136-145); Troponin High Sensitivity 5.6 pg/mL (<58.9)
[2025-02-25 15:15] LABS: Absolute Basophils 0.1 K/uL (0-0.5); Absolute Eosinophils 0.1 K/uL (0-0.5); Absolute Lymphocytes (CBC) 2.1 K/uL (0.7-4.9); Absolute Monocytes 0.5 K/uL (0.1-1.3); Absolute Neutrophil 4.6 K/uL (1.8-8.0); Basophils % 0.8 % (0-1.3); Eosinophils % 0.7 % (0-4.4); Hematocrit 46.8 % (39.6-49.0); Hemoglobin 15.8 g/dL (13.6-17.9); Lymphocytes % 28.7 % (15.3-44.8); MCH 29.9 pg (27.0-35.0); MCHC 33.7 g/dL (32.0-36.0); MPV 10.5 fL (7.6-11.3); Monocytes % 7.1 % (3.3-12.3); Neutrophils % 62.7 % (41.7-73.7); Nucleated Red Blood Cells % 0.1 % (0-0); Platelets 228 thou/uL (152-406); RBC Red Blood Cell Count 5.26 M/uL (4.33-5.43); Red Cell Distribution Width 13.5 % (12.1-15.2)
[2025-02-25 15:17] LABS: AST/SGOT 31 U/L (15-37); Bilirubin Direct < 0.2 mg/dL (0-0.2); Bilirubin Indirect, Calculated 0.3 mg/dL (0.2-0.8); Magnesium 2.3 mg/dL (1.6-2.4); Potassium 4.2 mEq/L (3.5-5.1)
--- NOTE | 2025-02-25 15:22 | EDPHYS ---
Physician Documentation [facility] Name: Garland Hidalgo Age: 54 yrs Sex: Male : 1970 Arrival Date: 02/25/2025 Time: 14:11 Bed 4 Private MD: ED Physician Cristofer Landa HPI: 02/25 14:33 This 54 yrs old Male presents to ER via Ambulatory with complaints of lightheaded after sp3 working outside. 14:34 54-year-old male with history of hyperlipidemia, hypertension, asthma, COPD now sp3 presents to the ED with chief complaint lightheadedness, sweatiness and mild chest pain which is now resolved after working outside. Patient was outside raking leaves in the heat states he has been sweating a lot and felt himself slowly good lightheaded and feelings of potentially passing out. No full syncope reported. Patient denies any fever, headache, neck pain, chest pain ongoing, shortness of breath, back pain, abdominal pain, nausea, vomiting, diarrhea, known sick contacts, travel history, prolonged immobilization, or any other signs or symptoms on ROS at this time. He does also state that his urine output has been decreased. His p.o. intake is also been decreased.. Historical: - Allergies: 14:16 PENICILLINS; ll1 14:16 TETRACYCLINES; ll1 - PMHx: 14:16 Asthma; Hyperlipidemia; Hypertension; ll1 14:28 Gout; COPD; ll1 - Immunization history:: Adult Immunizations up to date. - Social history:: Smoking status: Patient/guardian denies using tobacco. ROS: 14:35 Eyes: Negative for injury, pain, redness, and discharge, ENT: Negative for injury, sp3 pain, and discharge, Neck: Negative for injury, pain, and swelling, Respiratory: Negative for shortness of breath, cough, wheezing, and pleuritic chest pain, Abdomen/GI: Negative for abdominal pain, nausea, vomiting, diarrhea, and constipation, Back: Negative for injury and pain, MS/Extremity: Negative for injury and deformity, Skin: Negative for injury, rash, and discoloration, Psych: Negative for depression, anxiety, suicide ideation, homicidal ideation, and hallucinations, Allergy/Immunology: Negative for hives, rash, and allergies, Endocrine: Negative for neck swelling, polydipsia, polyuria, polyphagia, and marked weight changes, 14:35 All other systems are negative, Exam: 14:35 Constitutional: This is a well developed, well nourished patient who is awake, alert, sp3 and in no acute distress. Head/Face: Normocephalic, atraumatic. Eyes: Pupils equal round and reactive to light, extra-ocular motions intact. Lids and lashes normal. Conjunctiva and sclera are non-icteric and not injected. Cornea within normal limits. Periorbital areas with no swelling, redness, or edema. ENT: Nares patent. No nasal discharge, no septal abnormalities noted. External auditory canals are clear. Oropharynx with no redness, swelling, or masses, exudates, or evidence of obstruction, uvula midline. Mucous membranes moist. Neck: Trachea midline, no thyromegaly or masses palpated, and no cervical lymphadenopathy. Supple, full range of motion without nuchal rigidity, or vertebral point tenderness. No Meningismus. Chest/axilla: Normal chest wall appearance and motion. Nontender with no deformity. No lesions are appreciated. Respiratory: Lungs have equal breath sounds bilaterally, clear to auscultation and percussion. No rales, rhonchi or wheezes noted. No increased work of breathing, no retractions or nasal flaring. Abdomen/GI: Soft, non-tender, with normal bowel sounds. No distension or tympany. No guarding or rebound. No evidence of tenderness throughout. Back: No spinal tenderness. No costovertebral tenderness. Full range of motion. Skin: Warm, dry with normal turgor. Normal color with no rashes, no lesions, and no evidence of cellulitis. MS/ Extremity: Pulses equal, no cyanosis. Neurovascular intact. Full, normal range of motion. Neuro: Awake and alert, GCS 15, oriented to person, place, time, and situation. Cranial nerves II-XII grossly intact. Motor strength 5/5 in all extremities. Sensory grossly intact. Cerebellar exam normal. Normal gait. Psych: Awake, alert, with orientation to person, place and time. Behavior, mood, and affect are within normal limits. 14:35 Cardiovascular: Rate: tachycardic, 14:35 ECG was reviewed by the Attending Physician. EKG demonstrates sinus tachycardia at 103 bpm with normal intervals borderline QTc at 458, leftward axis, normal QRS, normal ST/T-segment's without evidence of acute ischemia. Vital Signs: 14:21 BP 124 / 89; Pulse 108; Resp 18; Temp 98.2; Pulse Ox 96% on R/A; Weight 118.84 kg; ll1 Height 5 ft. 9 in. ; Pain 1/10; 15:19 BP 124 / 84; Pulse 98; Resp 16; Pulse Ox 96% on R/A; iw 14:21 Body Mass Index 38.69 (118.84 kg, 175.26 cm) ll1 14:21 Pain Scale: Adult ll1 MDM: 14:27 Medical Screening Exam initiated sp3 14:35 Data reviewed: vital signs, nurses notes, lab test result(s), EKG, radiologic studies. sp3 ED course: 54-year-old male with PMH above now with lightheadedness and probable heat exhaustion. Differential diagnosis includes heat exhaustion electrolyte abnormality, dehydration, and to lesser degree acute coronary syndrome. Clinically I am not highly suspicious of infection, sepsis, shock, TAD, PE, pneumonia, [employer] infection or challenge, TIA/CVA spectrum, seizure, or any other critical process at this time. Workup will include general labs, EKG which is already been performed, and general supportive care. Normal saline 1 L IV. Patient is already feeling significantly better after being inside and in the air conditioning. If workup negative we will safely discharge patient home to PCP follow-up for continued outpatient management.. 15:21 ED course: Heart rate improved. Patient is completely resolved of all symptoms. sp3 Troponin negative. We will safely discharge patient home at this time.. 02/25 14:28 Order name: Basic Metabolic Panel; Complete Time: 15:18 3 02/25 14:28 Order name: CBC with Diff; Complete Time: 15:18 3 02/25 14:28 Order name: LFT's; Complete Time: 15:18 3 02/25 14:28 Order name: Magnesium; Complete Time: 15:18 3 02/25 14:28 Order name: NT PRO-BNP; Complete Time: 15:18 02/25 14:28 Order name: PT-INR; Complete Time: 14:56 3 02/25 14:28 Order name: Troponin HS; Complete Time: 15:18 3 02/25 14:28 Order name: XRAY Chest (1 view); Complete Time: 14:56 sp3 02/25 14:28 Order name: Cardiac monitoring; Complete Time: 14:29 sp3 02/25 14:28 Order name: EKG - Nurse/Tech; Complete Time: 14:29 sp3 02/25 14:28 Order name: IV Saline Lock; Complete Time: 14:35 sp3 02/25 14:28 Order name: Labs collected and sent; Complete Time: 14:35 sp3 02/25 14:28 Order name: O2 Per Protocol; Complete Time: 14:35 sp3 02/25 14:28 Order name: O2 Sat Monitoring; Complete Time: 14:35 sp3 Administered Medications: 14:49 Drug: NS 0.9% IV 1000 ml IV at 1000 ml once; to be given as a bolus over 60 minutes iw Route: IV; Rate: 1000 ml; Site: left forearm; 16:06 Follow up: Response: No adverse reaction; IV Status: Completed infusion; IV Intake: jl7 1000ml Disposition Summary: 02/25/25 15:21 Discharge Ordered Notes: Location: Home sp3 Condition: Stable sp3 Diagnosis - Heat exhaustion sp3 Followup: sp3 - With: Private Physician - When: Upon discharge from the Emergency Department - Reason: Continuance of care Followup: sp3 - With: João Brown MD - When: Upon discharge from the Emergency Department - Reason: Continuance of care Discharge Instructions: - Discharge Summary Sheet sp3 - Heat Exhaustion sp3 Forms: - Work release form ss - Medication Reconciliation Form sp3 - Antibiotic Education sp3 - Prescription Opioid Use sp3 - Patient Portal Instructions sp3 - Leadership Thank You Letter sp3 Signatures: Dispatcher [employer] Suzie Diamond RN RN Betsy Fernandez RN RN Maryuri Flores RN RN ll1 Cristofer Landa MD MD sp3 Gladys Soto RN jl7 Corrections: (The following items were deleted from the chart) 14: 14:16 Allergies: PENICILLINS; ss ll1 14:29 14:16 Allergies: TETRACYCLINES; ss ll1 14:29 14:16 PMHx: Asthma; ss ll1 14: 14:16 PMHx: Hyperlipidemia; ss ll1 14:29 14:16 PMHx: Hypertension; ss ll1
--- NOTE | 2025-02-25 15:22 | ER ---
Nurse's Notes [facility] Name: Garland Hidalgo Age: 54 yrs Sex: Male : 1970 Arrival Date: 02/25/2025 Time: 14:11 Bed 4 Private MD: Diagnosis: Heat exhaustion Presentation: 02/25 14:21 Chief complaint: Patient states: CP, SOB started while working outside today. Sent in ll1 by Julia June for further evaluation. Coronavirus screen: Client denies travel out of the [place] in the last 14 days. At this time, the client does not indicate any symptoms associated with coronavirus-19. Ebola Screen: Patient denies travel to an Ebola-affected area in the 21 days before illness onset. Initial Sepsis Screen: Does the patient meet any 2 criteria? No. Patient's initial sepsis screen is negative. Does the patient have a suspected source of infection? No. Patient's initial sepsis screen is negative. Risk Assessment: Do you want to hurt yourself or someone else? Patient reports no desire to harm self or others. Onset of symptoms was February 25, 2025. 14:21 Method Of Arrival: Ambulatory [facility] 14:21 Acuity: PETER 3 ll1 Triage Assessment: 14:29 General: Appears uncomfortable, Behavior is calm, cooperative, appropriate for age. ll1 Pain: Complains of pain in chest Pain currently is 1 out of 10 on a pain scale. Cardiovascular: Reports chest pain, shortness of breath. Respiratory: Reports shortness of breath. Historical: - Allergies: 14:16 PENICILLINS; ll1 14:16 TETRACYCLINES; ll1 - PMHx: 14:16 Asthma; Hyperlipidemia; Hypertension; ll1 14:28 Gout; COPD; ll1 - Immunization history:: Adult Immunizations up to date. - Social history:: Smoking status: Patient/guardian denies using tobacco. Screenin:20 [facility] ED Fall Risk Assessment (Adult) History of falling in the last 3 months, iw including since admission No falls in past 3 months (0 pts) Confusion or Disorientation No (0 pts) Intoxicated or Sedated No (0 pts) Impaired Gait No (0 pts) Mobility Assist Device Used No (0 pt) Altered Elimination No (0 pt) Score/Fall Risk Level 0 - 2 = Low Risk Oriented to surroundings, Maintained a safe environment. Abuse screen: Denies threats or abuse. Denies injuries from another. Nutritional screening: No deficits noted. Tuberculosis screening: No symptoms or risk factors identified. Assessment: 14:05 General: Appears in no apparent distress. Behavior is calm, cooperative. Pain: Denies iw pain. Neuro: Level of Consciousness is awake, alert, obeys commands, Oriented to person, place, time, situation, Moves all extremities. Full function. Cardiovascular: Patient's skin is warm and dry. Respiratory: Respiratory effort is even, unlabored, Respiratory pattern is regular, symmetrical. GI: Abdomen is non-distended. Derm: Skin is intact, is healthy with good turgor. Musculoskeletal: Range of motion: intact in all extremities. 15:29 Reassessment: Patient appears in no apparent distress at this time. Patient and/or jb4 family updated on plan of care and expected duration. Pain level reassessed. Patient is alert, oriented x 3, equal unlabored respirations, skin warm/dry/pink. D/c pending completion of IV fluids. Vital Signs: 14:21 BP 124 / 89; Pulse 108; Resp 18; Temp 98.2; Pulse Ox 96% on R/A; Weight 118.84 kg; ll1 Height 5 ft. 9 in. ; Pain 1/10; 15:19 BP 124 / 84; Pulse 98; Resp 16; Pulse Ox 96% on R/A; iw 14:21 Body Mass Index 38.69 (118.84 kg, 175.26 cm) ll1 14:21 Pain Scale: Adult ll1 ED Course: 14:15 Patient arrived in ED. im 14:16 Arm band placed on Patient placed in an exam room, on a stretcher. ll1 14:19 Cristofer Landa MD is Attending Physician. sp3 14:20 Provided Education on: lab draw. iw 14:23 Triage completed. ll1 14:24 uSzie Jones, TESFAYE is Primary Nurse. iw 14:35 Initial lab(s) drawn, by me, sent to lab. Inserted saline lock: 20 gauge in left iw forearm, using aseptic technique. Blood collected. Flushed with 10 mL NS. 14:47 XRAY Chest (1 view) In Process Unspecified. EDMS 15:20 Patient has correct armband on for positive identification. Client placed on continuous iw cardiac and pulse oximetry monitoring. NIBP monitoring applied. 15:21 João Brown MD is Referral Physician. sp3 16:06 No provider procedures requiring assistance completed. IV discontinued, intact, jl7 bleeding controlled, No redness/swelling at site. Pressure dressing applied. Administered Medications: 14:49 Drug: NS 0.9% IV 1000 ml IV at 1000 ml once; to be given as a bolus over 60 minutes iw Route: IV; Rate: 1000 ml; Site: left forearm; 16:06 Follow up: Response: No adverse reaction; IV Status: Completed infusion; IV Intake: jl7 1000ml Medication: 16:06 VIS not applicable for this client. jl7 Intake: 16:06 IV: 1000ml; Total: 1000ml. jl7 Outcome: 15:21 Discharge ordered by MD. sp3 16:06 Discharged to home ambulatory, jl7 16:06 Condition: stable 16:06 Discharge instructions given to patient, Instructed on discharge instructions, follow up and referral plans. Demonstrated understanding of instructions, follow-up care, 16:07 Patient left the ED. jl7 Signatures: Dispatcher [employer] EDSuzie Camacho RN TESFAYE Betsy Fernandez RN RN Marko Rodrigues RN RN [id number] Gladys Soto RN RN jl7 Maryuri Londono RN RN ll1 Cristofer Landa MD MD sp3 Stephanie Veloz Corrections: (The following items were deleted from the chart) 14:29 14:16 Allergies: PENICILLINS; ss ll1 14:29 14:16 Allergies: TETRACYCLINES; ss ll1 14:29 14:16 PMHx: Asthma; ss ll1 14:29 14:16 PMHx: Hyperlipidemia; ss ll1 14:29 14:16 PMHx: Hypertension; ss ll1
[2025-02-25 16:46] VITALS: TEMP 98.2; O2SAT 96
[2025-02-25 16:52] VITALS: BP 124/84
--- NOTE | 2025-02-26 12:19 | EKG ---
Test Date: 2025-02-25 Test Time: 14:26:55 [employer]: LML MEASUREMENT RESULTS: Intervals: Rate: 103 NV: 152 QRSD: 122 QT: 350 QTc: 458 [place]: P: 37 NV: 152 QRS: -15 T: 25 INTERPRETIVE STATEMENTS: Sinus tachycardia Cannot rule out Anterior infarct, age undetermined Abnormal ECG Compared to ECG 06/27/2024 13:58:40 Myocardial infarct finding now present Sinus rhythm no longer present Electronically Signed On 02-26-25 12:18:27 CDT by Denver Pimentel
== END 2025-02-25 16:07 | disposition home or self-care (01) ==
LOC: ER 14:11
DX: T67.5XXA Heat exhaustion, unspecified, initial encounter (principal)
CPT/HCPCS: 93005; 85025; 80048; 36415; 83735; 85610; 80076; 84484; 83880; 71045; 96360; 99284; J7030